=== PATIENT | female | born 1950 | race Caucasian/White ===

== ENCOUNTER 2017-07-09 21:46 | Observation (INO) | payer MEDICARE ==
[~2017-07-09] VITALS: Ht 157.5 cm; Wt 60.0 kg
[2017-07-09 22:42] VITALS: BP 238/108; PULSE 92; RESP 18; TEMP 98.2; O2SAT 97
[2017-07-09 23:00] VITALS: BP 223/107; PULSE 87; RESP 18; O2SAT 96
[2017-07-09] MEDS ORDERED: ZOLP10TA3 PO (23:03)
[2017-07-09] MEDS ORDERED: DICL75TA PO (23:03)
[2017-07-09] MEDS ORDERED: TRIA37.53 (23:03)
[2017-07-09] MEDS ORDERED: ROPI2TAB PO (23:03)
[2017-07-09] MEDS ORDERED: PRAV20TA2 PO (23:03)
[2017-07-09] MEDS ORDERED: ASPI81CH6 CHEW (23:04)
[2017-07-09 23:15] VITALS: BP 212/93; O2SAT 98
[2017-07-09 23:40] VITALS: BP 190/101; PULSE 84; RESP 18; O2SAT 98
[2017-07-09 23:40] LABS: AUTOMATED NEUTROPHIL # 4.6 TH/MM3 (1.8-7.7); BASOPHIL # 0.1 TH/MM3 (0-0.2); BASOPHIL % 1.2 % (0.0-2.0); EOSINOPHIL # 0.7 TH/MM3 (0-0.4); EOSINOPHIL % 8.7 % (0.0-4.0); HEMATOCRIT 42.2 % (35.0-46.0); HEMOGLOBIN 14.9 GM/DL (11.6-15.3); LYMPH % 23.5 % (9.0-44.0); LYMPHOCYTE # 1.9 TH/MM3 (1.0-4.8); MEAN CELL VOLUME 87.8 FL (80.0-100.0); MEAN CORPUSCULAR HEMOGLOBIN 30.9 PG (27.0-34.0); MEAN CORPUSCULAR HGB CONC 35.2 % (32.0-36.0); MEAN PLATELET VOLUME 7.3 FL (7.0-11.0); MONOCYTE # 0.8 TH/MM3 (0-0.9); NEUT % 56.6 % (16.0-70.0); PLATELET COUNT 303 TH/MM3 (150-450); RED BLOOD COUNT 4.81 MIL/MM3 (4.00-5.30); RED CELL DISTRIBUTION WIDTH 13.5 % (11.6-17.2); WHITE BLOOD COUNT 8.2 TH/MM3 (4.0-11.0)
[2017-07-09] MEDS ORDERED: LISINOPRIL 5 MG TAB PO ONE (23:45)
[2017-07-09] MEDS ORDERED: cloNIDine HCL 0.1 MG TAB PO ONE (23:45)
[2017-07-09 23:53] LABS: PROTHROMBIN TIME - PATIENT 10.2 SEC (9.8-11.6)
[2017-07-10] VITALS (7 sets, daily range): BP systolic 111–187; BP diastolic 57–96; PULSE 60–84; RESP 15–20; TEMP 98.2–98.3; O2SAT 96–99
[2017-07-10 00:13] LABS: BICARBONATE 27.3 MEQ/L (21.0-32.0); BLOOD UREA NITROGEN 17 MG/DL (7-18); CALCIUM 9.4 MG/DL (8.5-10.1); CHLORIDE 105 MEQ/L (98-107); CREATININE 0.75 MG/DL (0.50-1.00); GLOMERULAR FILTRATION RATE 78 ML/MIN (>89); GLUCOSE,RANDOM 101 MG/DL (74-106); SODIUM (NA) 138 MEQ/L (136-145)
--- NOTE | 2017-07-10 00:14 | PD ---
HPI Chief Complaint: Hypertension Time Seen by Provider: 22:55 Travel History International Travel<30 days: No Contact w/Intl Traveler<30days: No Traveled to known affect area: No History of Present Illness HPI Patient is a 66-year-old female who for the last few days hasn't been feeling well just kind of a heaviness in her chest. Denies pain or pressure and she is just been feeling run down. She went to see her doctor for regular routine workup and they thought that her EKG looked abnormal and her BP was elevated at 200 systolic over 100 systolic patient is on triamterene and hydrochlorothiazide combination pill that is her only blood pressure med and her pressure still remained high here at triage is 215/93 . EKG here in the ER is 76 bpm minimal depression in V5 and V6 patient denies chest pain. Patient is nontoxic-appearing nondiaphoretic she is not vomiting she has no signs of ischemic event she is reports still feeling slight heaviness in her chest. She took all of her meds and is compliant with her medications [facility] Past Medical History High Cholesterol: Yes Hypertension: Yes Medical other: Yes ("RESTLESS LEGS, INSOMINIA") Past Surgical History Other Surgery: Yes ("RIGHT LEG - TUMOR REMOVAL AND VEIN STRIPPING") Social History Alcohol Use: Yes ("SOCIAL") Tobacco Use: No Substance Use: No Allergies-Medications (Allergen,Severity, Reaction): Coded Allergies: No Known Allergies (Unverified , 07/10/17) Reported Meds & Prescriptions Reported Meds & Active Scripts Active Amlodipine (Amlodipine Besylate) 5 Mg Tab 5 Mg PO DAILY Lisinopril 10 Mg Tab 10 Mg PO DAILY Reported Aspirin Low Dose (Aspirin) 81 Mg Chew 81 Mg CHEW DAILY Zolpidem (Zolpidem Tartrate) 10 Mg Tab 12.5 Mg PO HS PRN Pravastatin 20 Mg Tab 20 Mg PO DAILY Diclofenac Sodium DR (Diclofenac Sodium) 75 Mg Tabdr 75 Mg PO BID Ropinirole 2 Mg Tab 2 Mg PO HS Triamterene-Hydrochlorothiazide 37.5-25 Mg Cap 1 Cap DAILY Review of Systems Except as stated in HPI: all other systems reviewed are Neg General / Constitutional: Positive: Other (patient's feeling rundown for 3 days and some heaviness in her chest denies pain) Physical Exam Narrative GENERAL: Nontoxic-appearing nondiaphoretic awake alert thin body habitus looks very fit for 66 SKIN: Warm and dry. HEAD: Atraumatic. Normocephalic. EYES: Pupils equal and round. No scleral icterus. No injection or drainage. ENT: No nasal bleeding or discharge. Mucous membranes pink and moist. NECK: Trachea midline. No JVD. CARDIOVASCULAR: Regular rate and rhythm. RESPIRATORY: No accessory muscle use. Patient has crackles in the left base possibly atelectasis or possibly edema or possibly an infiltrate GASTROINTESTINAL: Abdomen soft, non-tender, nondistended. Hepatic and splenic margins not palpable. MUSCULOSKELETAL: Extremities without clubbing, cyanosis, or edema. No obvious deformities. NEUROLOGICAL: Awake and alert. No obvious cranial nerve deficits. Motor grossly within normal limits. Five out of 5 muscle strength in the arms and legs. Normal speech. PSYCHIATRIC: Appropriate mood and affect; insight and judgment normal. Data Data Last Documented VS Vital Signs Date Time Temp Pulse Resp B/P (MAP) Pulse Ox O2 Delivery O2 Flow Rate FiO2 07/10/17 01:44 68 18 136/74 (94) 97 Room Air 07/09/17 22:42 98.2 Orders Orders Electrocardiogram (07/09/17 23:04) Complete Blood Count With Diff (07/09/17 23:04) Basic Metabolic Panel (Bmp) (07/09/17 23:04) Ckmb (Isoenzyme) Profile (07/09/17 23:04) Troponin I (07/09/17 23:04) Iv Access Insert/Monitor (07/09/17 23:04) Ecg Monitoring (07/09/17 23:04) Oxygen Administration (07/09/17 23:04) Oximetry (07/09/17 23:04) Coag Profile (07/09/17 23:04) Clonidine (Catapres) (07/09/17 23:45) Lisinopril (Prinivil) (07/09/17 23:45) Chest, Pa & Lat (07/09/17 ) B-Type Natriuretic Peptide (07/09/17 23:50) Ketorolac Inj (Toradol Inj) (07/10/17 01:00) Admit Order (Ed Use Only) (07/10/17 01:47) Labs Laboratory Tests Test 07/09/17 23:10 White Blood Count 8.2 TH/MM3 Red Blood Count 4.81 MIL/MM3 Hemoglobin 14.9 GM/DL Hematocrit 42.2 % Mean Corpuscular Volume 87.8 FL Mean Corpuscular Hemoglobin 30.9 PG Mean Corpuscular Hemoglobin Concent 35.2 % Red Cell Distribution Width 13.5 % Platelet Count 303 TH/MM3 Mean Platelet Volume 7.3 FL Neutrophils (%) (Auto) 56.6 % Lymphocytes (%) (Auto) 23.5 % Monocytes (%) (Auto) 10.0 % Eosinophils (%) (Auto) 8.7 % Basophils (%) (Auto) 1.2 % Neutrophils # (Auto) 4.6 TH/MM3 Lymphocytes # (Auto) 1.9 TH/MM3 Monocytes # (Auto) 0.8 TH/MM3 Eosinophils # (Auto) 0.7 TH/MM3 Basophils # (Auto) 0.1 TH/MM3 CBC Comment DIFF FINAL Differential Comment Prothrombin Time 10.2 SEC Prothromb Time International Ratio 1.0 RATIO Activated Partial Thromboplast Time 28.0 SEC Blood Urea Nitrogen 17 MG/DL Creatinine 0.75 MG/DL Random Glucose 101 MG/DL Calcium Level 9.4 MG/DL Sodium Level 138 MEQ/L Potassium Level 3.6 MEQ/L Chloride Level 105 MEQ/L Carbon Dioxide Level 27.3 MEQ/L Anion Gap 6 MEQ/L Estimat Glomerular Filtration Rate 78 ML/MIN Total Creatine Kinase 72 U/L Troponin I LESS THAN 0.02 NG/ML B-Type Natriuretic Peptide 29 PG/ML MDM Medical Decision Making Medical Screen Exam Complete: Yes Emergency Medical Condition: Yes Differential Diagnosis Patient is possibly having GERD versus gastritis versus costochondritis versus ischemic chest pain versus anxiety related chest pain other Narrative Course Patient has hypertension that did not respond to the medication that I gave her which is the nitroglycerin and aspirin and lisinopril and clonidine. Her BP remain over 200 systolic. Patient agrees to stay for a serial troponin and then a stress test in the a.m. to rule out ischemic causes of her chest heaviness and slight EKG changes. 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 Pt agrees to stay Diagnosis Primary Impression: Atypical chest pain Additional Impression: Hypertension Qualified Codes: I10 - Essential (primary) hypertension Admitting Information Admitting Physician Requests: Observation Scripts Amlodipine (Amlodipine) 5 Mg Tab 5 MG PO DAILY for Blood Pressure Management, #30 TAB 1 Refill Prov: Brenna Horn 07/10/17 Lisinopril (Lisinopril) 10 Mg Tab 10 MG PO DAILY, #30 TAB 1 Refill Prov: Brenna Horn 07/10/17 Dedrick De La Paz MD Jul 10, 2017 00:14
[2017-07-10 00:17] LABS: TROPONIN I LESS THAN 0.02 NG/ML (0.02-0.05)
--- NOTE | 2017-07-10 00:27 | RADRPT ---
EXAM DATE/TIME: 07/10/2017 00:02 [facility] COMPARISON: No previous studies available for comparison. INDICATIONS : Hypertensive episode. MEDICAL HISTORY : Hypertension. SURGICAL HISTORY : None. ENCOUNTER: Initial ACUITY: 1 day PAIN SCORE: 0/10 LOCATION: Bilateral chest FINDINGS: PA and lateral views of the chest demonstrates hyperinflation which can be seen with CO PD. No infiltrates are seen. Heart is normal in size. The mediastinal contours are unremarkable. O sseous structures are intact. CONCLUSION: Hyperinflation which can be seen with COPD. No evidence for an infiltrate. Travis Hatch MD on July 10, 2017 at 0:25 Board Certified Radiologist. This report was verified electronically.
[2017-07-10] MEDS ORDERED: KETOROLAC TROMETHAMINE 30 MG/ML (IVP) VIAL IV PUSH ONE (01:00)
[2017-07-10] MEDS: SODIUM CHLORIDE 0.9% FLUSH 10 ML FLUSH IV FLUSH SCH ×2 (01:52→08:08)
[2017-07-10] MEDS ORDERED: SODIUM CHLORIDE 0.9% FLUSH 10 ML FLUSH IV FLUSH PRN (02:00)
[2017-07-10 03:02] LABS: TROPONIN I LESS THAN 0.02 NG/ML (0.02-0.05)
[2017-07-10 05:50] LABS: TROPONIN I LESS THAN 0.02 NG/ML (0.02-0.05)
[2017-07-10] MEDS ORDERED: NITROGLYCERIN 0.4 MG SL 25 TABS/BTL SL PRN (08:00)
[2017-07-10] MEDS ORDERED: ACETAMINOPHEN 500 MG CPLT PO PRN (08:00)
[2017-07-10] MEDS ORDERED: ONDANSETRON HCL 4 MG/2 ML VIAL IV PUSH PRN (08:00)
[2017-07-10] MEDS ORDERED: ASPIRIN 325 MG TAB PO SCH (09:00)
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
[2017-07-10] MEDS ORDERED: LISINOPRIL 5 MG TAB PO ONE (11:30)
[2017-07-10] MEDS ORDERED: amLODIPine BESYLATE 5 MG TAB PO ONE (11:30)
[2017-07-10] MEDS ORDERED: AMLO5TAB2 PO (12:35)
[2017-07-10] MEDS ORDERED: LISI10TA3 PO (12:35)
--- NOTE | 2017-07-10 12:36 | HHI.DCPOC ---
Discharge Care Plan Diagnosis: (1) Carotid bruit present (2) Atypical chest pain (3) Hypertension Goals to Promote Your Health * To prevent worsening of your condition and complications * To maintain your health at the optimal level Directions to Meet Your Goals Take your medications as prescribed Follow your dietary instruction Follow activity as directed Keep your appointments as scheduled Take your immunizations and boosters as scheduled If your symptoms worsen call your PCP, if no PCP go to Urgent Care Center or Emergency Room Smoking is Dangerous to Your Health. Avoid second hand smoke Call the 24-hour hour crisis hotline for domestic abuse at Brenna Horn Jul 10, 2017 12:36
--- NOTE | 2017-07-10 12:40 | TR ---
Date Performed: 07/10/2017 Time Performed: 12:14:57 DOCTOR: Yogesh Anand DRUG LIST: CLINICAL HISTORY: REASON FOR TEST: REASON FOR ENDING: OBSERVATION: CONCLUSION: Fredo protocol completed. Stopped sec to exceeding target heart rate and leg fatigue . Maximum HA=202 Target HR Achieved=88.0% Maximum FP=289/78 Total Exercise Time=6:01. No reprod chest discomfort. Rare PAC. No st t segment changes to sugg ischemia. Good exercise tolerance. Mildy hyper tensive bp response. Recovery quick and unremarkable COMMENTS: Conclusion: Normal treadmill exercise. No evidence of ischemia.
--- NOTE | 2017-07-10 12:41 | EKG ---
Date Performed: 07/10/2017 Time Performed: 02:28:36 PTAGE: 66 years EKG: Sinus rhythm NORMAL ECG PREVIOUS TRACING : 07/09/2017 23.00 Since previous tracing, no significant change noted DOCTOR: Yogesh Anand Interpretating Date/Time 07/10/2017 12:40:32
--- NOTE | 2017-07-10 12:41 | EKG ---
Date Performed: 07/10/2017 Time Performed: 04:50:01 PTAGE: 66 years EKG: Sinus rhythm WITH FIRST DEGREE AV BLOCK ABNORMAL ECG PREVIOUS TRACING : 07/10/2017 02.28 Since previous tracing, no significant change noted DOCTOR: Yogesh Anand Interpretating Date/Time 07/10/2017 12:39:58
--- NOTE | 2017-07-10 12:42 | EKG ---
Date Performed: 07/09/2017 Time Performed: 23:00:42 PTAGE: 66 years EKG: Sinus rhythm NORMAL ECG PREVIOUS TRACING : 03/30/1993 17.47 Since previous tracing, no significant change noted DOCTOR: Yogesh Anand Interpretating Date/Time 07/10/2017 12:41:03
== END 2017-07-10 13:06 | disposition home or self-care (01) ==
LOC: NEPE 21:46 → NEDA 07-10 01:48 → NEDH 07-10 06:22
PROVIDERS: ADMIT Internal Medicine Cardiovascular Disease; ATTEND Internal Medicine Cardiovascular Disease
DX: I10 Essential (primary) hypertension (principal); R07.89 Other chest pain; R09.89 Other specified symptoms and signs involving the circulatory and respiratory systems; I44.0 Atrioventricular block, first degree; G25.81 Restless legs syndrome; E78.5 Hyperlipidemia, unspecified; G47.00 Insomnia, unspecified
CPT/HCPCS: 71046; 80048; 82550; 83880; 84484; 85025; 85610; 85730; 93005; 93017; 96374; 96376; 99285; G0378; J1885

== ENCOUNTER 2017-07-19 12:07 | Inpatient (IN) | payer MEDICARE ==
[2017-07-19] VITALS (13 sets, daily range): BP systolic 106–146; BP diastolic 55–76; PULSE 58–103; RESP 16–22; TEMP 98.4–99; O2SAT 96–100
[~2017-07-19] VITALS: Ht 157.5 cm; Wt 59.5 kg
[~2017-07-19 12:07] MED LIST: AMLO5TAB2 PO; ASPI81CH6 CHEW; DICL75TA PO; IOHEXOL 350 MG/ML 100 ML BTL (for Cath Lab) OTHER ONE; LISI10TA3 PO; PRAV20TA2 PO; ROPI2TAB PO; TRIA37.53; ZOLP10TA3 PO
[2017-07-19] MEDS ORDERED: ASPIRIN 81 MG CHEW TAB PO STA (12:11)
[2017-07-19] MEDS ORDERED: HEPARIN SODIUM - IV 10,000 UNITS/10 ML VIAL IV PUSH STA (12:11)
[2017-07-19] MEDS ORDERED: NITROGLYCERIN 0.4 MG SL 25 TABS/BTL SL STA (12:11)
[2017-07-19] MEDS ORDERED: SODIUM CHLOR 0.9% 1000 ML INJ 1,000 ML IV ONE (12:11)
[2017-07-19] MEDS ORDERED: NITROGLYCERIN-D5W 50 MG/250 ML 250 ML IV PRN ×2 (12:15→12:30)
[2017-07-19] MEDS ORDERED: SODIUM CHLORIDE 0.9% FLUSH 10 ML FLUSH IVF PRN ×2 (12:15→12:30)
[2017-07-19] MEDS ORDERED: AMIODARONE INJ 150 MG in DEXTROSE 5% IN WATER 100ML INJ 97 ML IV ONE ×2 (12:17)
[2017-07-19 12:26] LABS: AUTOMATED NEUTROPHIL # 7.4 TH/MM3 (1.8-7.7); BASOPHIL # 0.1 TH/MM3 (0-0.2); BASOPHIL % 0.8 % (0.0-2.0); EOSINOPHIL % 0.2 % (0.0-4.0); HEMATOCRIT 38.5 % (35.0-46.0); HEMOGLOBIN 13.1 GM/DL (11.6-15.3); LYMPH % 14.2 % (9.0-44.0); LYMPHOCYTE # 1.4 TH/MM3 (1.0-4.8); MEAN CELL VOLUME 88.5 FL (80.0-100.0); MEAN CORPUSCULAR HEMOGLOBIN 30.2 PG (27.0-34.0); MEAN CORPUSCULAR HGB CONC 34.1 % (32.0-36.0); MEAN PLATELET VOLUME 7.3 FL (7.0-11.0); MONO % 8.8 % (0.0-8.0); MONOCYTE # 0.9 TH/MM3 (0-0.9); PLATELET COUNT 305 TH/MM3 (150-450); RED BLOOD COUNT 4.35 MIL/MM3 (4.00-5.30); RED CELL DISTRIBUTION WIDTH 13.5 % (11.6-17.2); WHITE BLOOD COUNT 9.7 TH/MM3 (4.0-11.0)
--- NOTE | 2017-07-19 12:32 | PD ---
HPI Chief Complaint: STEMI Alert Time Seen by Provider: 12:10 Travel History International Travel<30 days: No Contact w/Intl Traveler<30days: No Traveled to known affect area: No History of Present Illness HPI 66-year-old female patient with history of hypertension, presents to the ER today brought in by EMS as a STEMI alert, started having nausea, vomiting last night, and this morning he started having chest pains which she states was pressure-like and with radiation down the left arm, states it was a 2-3 out of 10 initially, EMS started her on aspirin and nitroglycerin and the chest discomfort went down to a 2 out of 10. She denies other issues. EKG shows inferior ST elevations and depressions in the lateral leads. STEMI alert was called in the ER. Case was discussed with Dr. Bhatt who comes to see the patient in the ER. While we were waiting for Dr. Bhatt to come down, patient had an episode of what appears to be a wide complex tachycardia and there is concern about a V. tach, amiodarone had been ordered for the patient. Otherwise, heparin had been ordered for the patient. However, when Dr. Bhatt saw the patient in the EKG, he suspect that this is reperfusion, and wants to hold off on the amiodarone. He expects to take the patient for catheterization. Modifying Factors: None Associated Signs & Symptoms: STEMI alert Risk Factors: Hypertension PFSH Past Medical History Cardiovascular Problems: Yes High Cholesterol: Yes Hypertension: Yes Past Surgical History Other Surgery: Yes ("RIGHT LEG - TUMOR REMOVAL AND VEIN STRIPPING") Social History Alcohol Use: Yes ("SOCIAL") Tobacco Use: No Substance Use: No Allergies-Medications (Allergen,Severity, Reaction): Coded Allergies: No Known Allergies (Unverified , 07/19/17) Reported Meds & Prescriptions Reported Meds & Active Scripts Active Amlodipine (Amlodipine Besylate) 5 Mg Tab 5 Mg PO DAILY Lisinopril 10 Mg Tab 10 Mg PO DAILY Reported Aspirin Low Dose (Aspirin) 81 Mg Chew 81 Mg CHEW DAILY Zolpidem (Zolpidem Tartrate) 10 Mg Tab 12.5 Mg PO HS PRN Pravastatin 20 Mg Tab 20 Mg PO DAILY Diclofenac Sodium DR (Diclofenac Sodium) 75 Mg Tabdr 75 Mg PO BID Ropinirole 2 Mg Tab 2 Mg PO HS Triamterene-Hydrochlorothiazide 37.5-25 Mg Cap 1 Cap DAILY Review of Systems Except as stated in HPI: all other systems reviewed are Neg Physical Exam Narrative GENERAL: Well-developed elderly female patient currently and moderate distress. Awake and oriented 3. SKIN: Focused skin assessment warm/mildly diaphoretic. HEAD: Atraumatic. Normocephalic. EYES: Pupils equal and round. No scleral icterus. No injection or drainage. ENT: No nasal bleeding or discharge. Mucous membranes pink and moist. NECK: Trachea midline. No JVD. Supple. CARDIOVASCULAR: Regular rate and rhythm. No murmur appreciated. Pulses are present and equal bilaterally. RESPIRATORY: No accessory muscle use. Clear to auscultation. Breath sounds equal bilaterally. GASTROINTESTINAL: Abdomen soft, non-tender, nondistended. Hepatic and splenic margins not palpable. MUSCULOSKELETAL: No obvious deformities. No clubbing. No cyanosis. No edema. NEUROLOGICAL: Awake and alert. No obvious cranial nerve deficits. Motor grossly within normal limits. Normal speech. PSYCHIATRIC: Appropriate mood and affect; insight and judgment normal. Data Data Last Documented VS Vital Signs Date Time Temp Pulse Resp B/P (MAP) Pulse Ox O2 Delivery O2 Flow Rate FiO2 07/19/17 12:18 98 Room Air 07/19/17 12:18 2.00 07/19/17 12:07 98.4 60 19 131/66 (87) Orders Orders Troponin I (07/19/17 12:11) Ckmb (Isoenzyme) Profile (07/19/17 12:11) Complete Blood Count With Diff (07/19/17 12:11) I-Stat Profile (07/19/17 12:11) I-Stat Creatinine (07/19/17 12:11) Calcium (07/19/17 12:11) Magnesium (Mg) (07/19/17 12:11) Prothrombin Time / Inr (Pt) (07/19/17 12:11) Act Partial Throm Time (Ptt) (07/19/17 12:11) B-Type Natriuretic Peptide (07/19/17 12:11) Chest, Single Ap (07/19/17 12:11) Electrocardiogram (07/19/17 12:11) Oxygen Administration (07/19/17 12:11) Iv Access Insert/Monitor (07/19/17 12:11) Oximetry (07/19/17 12:11) Sodium Chlor 0.9% 1000 Ml Inj (Ns 1000 M (07/19/17 12:11) Sodium Chloride 0.9% Flush (Ns Flush) (07/19/17 12:15) Aspirin Chew (Aspirin Chew) (07/19/17 12:11) Nitroglycerin Sl (Nitrostat Sl) (07/19/17 12:11) Nitroglycerin-D5w 50 Mg/250 Ml (Nitrogly (07/19/17 12:15) Heparin Inj (Heparin Inj) (07/19/17 12:11) Dextrose 5% In Wate... W/Amiodarone Inj (07/19/17 12:17) Sodium Chloride 0.9% Flush (Ns Flush) (07/19/17 12:30) Admit Order (Ed Use Only) (07/19/17 12:17) Labs Laboratory Tests Test 07/19/17 12:10 White Blood Count 9.7 TH/MM3 Red Blood Count 4.35 MIL/MM3 Hemoglobin 13.1 GM/DL Bedside Hemoglobin 12.6 G/DL Hematocrit 38.5 % Bedside Hematocrit 37.0 % Mean Corpuscular Volume 88.5 FL Mean Corpuscular Hemoglobin 30.2 PG Mean Corpuscular Hemoglobin Concent 34.1 % Red Cell Distribution Width 13.5 % Platelet Count 305 TH/MM3 Mean Platelet Volume 7.3 FL Neutrophils (%) (Auto) 76.0 % Lymphocytes (%) (Auto) 14.2 % Monocytes (%) (Auto) 8.8 % Eosinophils (%) (Auto) 0.2 % Basophils (%) (Auto) 0.8 % Neutrophils # (Auto) 7.4 TH/MM3 Lymphocytes # (Auto) 1.4 TH/MM3 Monocytes # (Auto) 0.9 TH/MM3 Eosinophils # (Auto) 0.0 TH/MM3 Basophils # (Auto) 0.1 TH/MM3 CBC Comment DIFF FINAL Differential Comment Bedside Sodium 137 MMOL/L Bedside Potassium 4.0 MMOL/L Bedside Chloride 103 MMOL/L Bedside Blood Urea Nitrogen 24 MG/DL Bedside Creatinine 1.5 MG/DL Bedside Glucose 142 MG/DL MDM Medical Decision Making Medical Screen Exam Complete: Yes Emergency Medical Condition: Yes Medical Record Reviewed: Yes Interpretation(s) Initial EKG by EMS shows inferior ST elevations and lateral ST depressions concerning for STEMI. Laboratory Tests Test 07/19/17 12:10 Neutrophils (%) (Auto) 76.0 % (16.0-70.0) Monocytes (%) (Auto) 8.8 % (0.0-8.0) Bedside Blood Urea Nitrogen 24 MG/DL (5-21) Bedside Creatinine 1.5 MG/DL (0.6-1.3) Bedside Glucose 142 MG/DL (68-110) Differential Diagnosis STEMI alert versus hypertensive emergency versus dysrhythmias Narrative Course Patient is admitted to Dr. Bhatt service, planning to go to catheterization. Diagnosis Primary Impression: STEMI (ST elevation myocardial infarction) Admitting Information Admitting Physician Requests: Admit Clayton Benjamin MD Jul 19, 2017 12:32
[2017-07-19 12:37] LABS: PROTHROMBIN TIME - PATIENT 10.5 SEC (9.8-11.6)
[2017-07-19 12:40] LABS: CALCIUM 9.3 MG/DL (8.5-10.1)
[2017-07-19 12:46] LABS: MAGNESIUM 1.8 MG/DL (1.5-2.5)
[2017-07-19] MEDS ORDERED: HEPARIN-NS/PF FLUSH BAG 2,000 ML IV FLUSH ONE (12:47)
--- NOTE | 2017-07-19 12:47 | RADRPT ---
EXAM DATE/TIME: 07/19/2017 12:11 [facility] COMPARISON: No previous studies available for comparison. INDICATIONS : Stemi-alert. MEDICAL HISTORY : Hypertension. SURGICAL HISTORY : None. ENCOUNTER: Initial ACUITY: 1 day PAIN SCORE: 10/10 LOCATION: Bilateral chest FINDINGS: The lungs are clear. Heart size appears normal. Pulmonary vasculature appears normal. Osseous structu res are intact.. CONCLUSION: No acute disease. Vanita Johnson MD on July 19, 2017 at 12:42 Board Certified Radiologist. This report was verified electronically.
[2017-07-19] MEDS ORDERED: VERAPAMIL HCL 5 MG/2 ML VIAL ONE (12:56)
[2017-07-19] MEDS ORDERED: HEPARIN SODIUM - IV 10,000 UNITS/10 ML VIAL ONE (12:56)
[2017-07-19] MEDS ORDERED: MIDAZOLAM HCL 5 MG/5 ML VIAL ONE (13:05)
[2017-07-19] MEDS ORDERED: PHENYLEPHRINE HCL 10 MG/ML VIAL ONE (13:13)
[2017-07-19 13:22] LABS: TROPONIN I 6.33 NG/ML (0.02-0.05)
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
[2017-07-19] MEDS ORDERED: ONDANSETRON HCL 4 MG/2 ML VIAL ONE (13:44)
[2017-07-19] MEDS ORDERED: TIROFIBAN INFUSION INJ 250 ML IV ONE (13:47)
[2017-07-19] MEDS ORDERED: HEPARIN-NS/PF FLUSH BAG 3,000 ML IV FLUSH ONE (13:52)
[2017-07-19] MEDS ORDERED: ADENOSINE IV SOLN 3 MG/ML 2 ML VIAL ONE (14:07)
[2017-07-19] MEDS ORDERED: SODIUM NITROPRUSSIDE 50 MG/2 ML VIAL ONE (14:17)
[2017-07-19] MEDS ORDERED: CLOPIDOGREL 300 MG TAB ONE (14:26)
[2017-07-19] MEDS ORDERED: TIROFIBAN INFUSION INJ 250 ML IV SCH (14:46)
[2017-07-19] MEDS ORDERED: SODIUM CHLOR 0.9% 1000 ML INJ 1,000 ML IV SCH (14:46)
[2017-07-19] MEDS ORDERED: MORPHINE SULFATE 4 MG/ML INJ IV PUSH PRN (15:00)
[2017-07-19] MEDS ORDERED: ATROPINE SULFATE 1 MG/ML VIAL IV PUSH PRN (15:00)
[2017-07-19] MEDS ORDERED: ACETAMINOPHEN 325 MG TAB PO PRN (15:00)
[2017-07-19] MEDS ORDERED: MISC INFORMATION XX ONE (15:00)
[2017-07-19] MEDS ORDERED: SODIUM CHLOR 0.9% 250 ML INJ 250 ML IV PRN (15:00)
[2017-07-19] MEDS ORDERED: oxyCODONE/ACETAMINOPHEN 5 MG/325 MG TAB PO PRN (15:00)
--- NOTE | 2017-07-19 15:00 | CATHPROC ---
[employer] HIS Report Study Information Study Number Admission Scheduled Start Study Start [id number] Jul 19 2017 12:18PM 07/19/2017 Jul 19 2017 12:35PM [place] Service Cardiac Catheterization Admit Source Facility Department Emergency department [facility] - Medical Safety Director Physician and Clinical Staff Initial [facility] Sales Assistant Alvaro George,ZARIA Pharmacy Sales Assistant Renita Chavarria,ZARIA Recorder Keyla Grossman,RT(R) Scrub Jeannette Hollins,CELINA TECH2 Procedures Performed Procedure Location (Site) Vessel Name Coronary Angiograms LCA Left Coronary Coronary Angiograms RCA Right Coronary Drug Eluting Inflatio RCA Dist Right Coronary Drug Eluting Inflatio RCA Prox Right Coronary L Heart Cath Pacemaker Temp Fem Vein (right) Femoral Vein PTCA RCA Dist Right Coronary PTCA RCA Mid Right Coronary PTCA RCA Prox Right Coronary PTCA ADD ON'S Wire insertion Fem Art (right) Femoral Art Wire insertion Fem Vein (right) Femoral Vein Equipment Time Market Director Description Size Mfg Part Number Used/Scraped WIRE, BALANCE MIDDLEWEIGHT [id number] 13:27 [employer] 190CM Used 190CM *[id number] 13:19 MCINTYRE SMITH PACING CATHETER J CURVE FR 5 Used *[id number] TRANSDUCER, TRUWAVE [id number] 13:15 MCINTYRE SMITH * Used W/STOCKCOCK *[id number] 13:49 [employer] BALLOON, 2.0 20MM EMERGE MR 2.0 20MM Used *[id number] INTRODUCER SET, 13:15 [employer] FR 5 [id number] *[id number] Used MICROPUNCTURE STIFF [id number] *[phone] *[id number] [id number] 13:15 [employer] IND[employer]RIES PACK, CCL CUSTOM * Used *[id number] 13:30 MEDTRONIC BALLOON, 2.0 X 12MM EUPHORA 12MM Used *[id number] BALLOON, 2.25 X 15MM NC [id number] 14:20 MEDTRONIC 15MM Used EUPHORA *[id number] BALLOON, 2.75 X 12MM NC [id number] 14:22 MEDTRONIC 12MM Used EUPHORA *[id number] 13:37 [employer] CATHETER, EXPORT ASPIRATON Used *0931275 [id number] 14:03 [employer] STENT, 2.25 30MM MEAGAN 2.25 30MM Used *6262849 [id number] 14:13 [employer] STENT, 2.75 15MM MEAGAN 2.75 15MM Used *1457658 [id number] 13:29 [employer] MEDICAL 30 ERNA INDEFLATOR Used *1108090 [id number] 13:15 [employer] WIRE, 3MMJ .035 180CM 180CM Used *3871703 [id number] 13:15 [employer]AMIC MANIFOLD, 4 PORT * Used *[id number] 13:15 [employer] OMNIPAQUE, 350 MG, 150ML 150ML [id number] Used 13:30 [employer] OMNIPAQUE, 350 MG, 150ML 150ML [id number] Used 13:30 [employer]ED OMNIPAQUE, 350 MG, 50ML 50ML [id number] Used [id number] 13:15 [facility] BLANKET,WARM AIR CCL * Used *4492030 [id number] 13:16 [employer] SHEATH, FR6 TERUMO (10CM) FR 6 Used *6605870 [id number] 13:18 [employer] SHEATH, FR6 TERUMO (10CM) FR 6 Used *[id number] Equipment Model, Serial, Lot Number and Expiration Data Description Model Number Serial Number Lot Number Expiration Date CATHETER, EXPORT ASPIRATON [id number] 02-05-2019 STENT, 2.25 30MM MEAGAN [id number] 02-21-2019 STENT, 2.75 15MM MEAGAN [id number] 03-10-2019 History: Allergies Allergy Reaction No Known Allergies History: Risk Factors Family History of Hypertension Dyslipidemia Previous VT Previous Heart Failure Premature CAD Yes No No No No Prior Valve Prior PCI Prior CABG Surgery No No No Cerebrovascular Peripheral Artery Chronic Lung On Dialysis Diabetes Disease Disease Disease No No No No No History: Symptoms/Diagnosis Selection Items Chest pain History: Stress Tests Stress or Imaging Studies Performed Yes Standard Exercise Stress Stress Test Result Stress Test Ischemia Risk/Extent Test Yes Positive Low Stress Echo No Stress Test SPECT No Stress Test CMR No Cardiac CTA Coronary Calcium Score No No History: Other Current Smoker Method Quit Packs a Day Years Used Pack Years No Cigarettes 8 Years Ago 1 40 40 Labs Hgb (g/dl) Hct (%) RBC (MIL/MM3) WBC (l/cumm) Platelets (thousands) 11.60-17.00 35.00-51.00 4.00-5.90 4.00-11.00 150.00-450.00 12.6 37 4.3 9.7 305 Glucose (mg/dl) BUN (mg/dl) Creatinine (mg/dl) BUN:Creatinine (1:x) 74.00-106.00 7.00-18.00 0.50-1.30 10.00-20.00 142 24 1.5 16 Na (meq/l) K (meq/l) Ca (mg/dl) 136.00-145.00 3.50-5.10 8.50-10.10 137 4 9.3 PT (sec) PTT (sec) INR (PTT:PT) 9.80-11.60 24.30-30.10 0.90-1.10 10.5 25.7 1 Troponin I (ng/ml) CPK-MB (ng/ML) 0.02-0.05 0.50-3.60 6.3 12.7 Medication Medication Total Dose (Bolus/Oral) Medication Total Dosage/Unit 1% XYLOCAINE 20 mL ADENOSINE 24 mcg AGGRASTAT BOLUS 0.5 meq/kg FENTANYL 25 mcg HEPARIN 4000 units PLAVIX 600 mg VERSED 0.5 mg ZOFRAN 4 mg Medications (Bolus/Oral) Medication Time Given Dosage/Unit Administered By Reason 1% XYLOCAINE 07/19/2017 1:11:10 PM 20 mL Brad Bhatt 20 mL 1% XYLOCAINE given in lab by Brad Bhatt in Right Groin via Subcutaneous. VERSED 07/19/2017 1:13:23 PM 0.5 mg Alvaro George 0.5 mg VERSED given in lab by Alvaro George RN via Peripheral IV. FENTANYL 07/19/2017 1:13:53 PM 25 mcg Alvaro George 25 mcg FENTANYL given in lab by Alvaro George RN via Peripheral IV. HEPARIN 07/19/2017 1:34:45 PM 4000 units Alvaro George 4000 units HEPARIN given in lab by Alvaro George RN via Peripheral IV. ZOFRAN 07/19/2017 1:45:03 PM 4 mg Alvaro George 4 mg ZOFRAN given in lab by Alvaro George RN via Central IV. AGGRASTAT BOLUS 07/19/2017 1:52:34 PM 0.5 meq/kg Alvaro George 0.5 meq/kg AGGRASTAT BOLUS given in lab by Alvaro George RN via Peripheral IV. Amount given = 29 meq . ADENOSINE 07/19/2017 2:14:36 PM 24 mcg Brad Bhatt 24 mcg ADENOSINE given in lab by Brad Bhatt via Intra-coronary. 4 ml PLAVIX 07/19/2017 2:35:17 PM 600 mg Alvaro George 600 mg PLAVIX given in lab by Alvaro George RN via Oral. Medication (Drip) Medication Time Given Dosage/Unit Concentration/Unit Diluent (ml) Solution AGGRASTAT DRIP 07/19/2017 1:54:23 PM 0.075 mcg/kg/min 12.5 mg 250 NaCl .9 0.075 mcg/kg/min AGGRASTAT DRIP given in lab by Alvaro George RN via Peripheral IV. Pump/Drip Flow = 5.2 ml/hr using NaCl .9 with a concentration of 12.5 mg in 250 ml. NIPRIDE 07/19/2017 2:25:18 PM 50 mcg 50 mcg NIPRIDE given in lab by Brad Bhatt via Intra-coronary. Final Case Assessment Cardiovascular HR Rhythm NIBP Chest Pain 92 reg 140/71 0 Edema Present Skin color Skin None Normal Warm Circulatory - Right Pulses Dorsalis Pedis Femoral 2 2 Scale (0,1,2,3,4,d) Circulatory - Left Pulses Dorsalis Pedis Femoral 2 2 Scale (0,1,2,3,4,d) Circulatory - Lower Extremities Color Lower Right Color Lower Left Normal Normal Neurological State Oriented to time-place- Alert Moves all extremities person Respiration - General Respiration Rate SpO2 (%) (B/min) 13 100 Chronological Log Time Study Chronological Log 12:45:16 Emergency Room notified that Medical Safety Director is ready. 12:45:50 MD arrived. 12:58:00 Patient arrived via Bed. Vitals capture started with the following parameters, Patient=Adult, Interval=5 min, Initial Pr zbcgtb=444 mmHg, 13:03:37 Deflation Rate=5 mmHg, Cuff placed on Left Arm 13:04:09 HR=82 bpm, AOJV=660/78 mmhg, SpO2=99.0 %, Resp=12 B/min, Pain=0, Red=10, Zamarripa=2 13:04:46 Patient Name, D.O.B, / Armband Verified By R.N. 13:04:46 Consent signed by the physician and the patient and verified by the Medical Safety Director staff. 13:04:47 Pre-op and post- op instructions given; patient acknowledges understanding of instructions. 13:04:49 Verbal Stimulation=2 Physical Stimulation=2 Airway=2 Respiration=2 TOTAL=8. (0=absent, 1=li mited, 2=present) 13:05:44 Skin Breakdown-none 13:08:53 Pressure channel 1 zeroed. 13:09:14 HR=41 bpm, RIGV=520/71 mmhg, RbI2=506.0 %, Resp=18 B/min, Pain=0, Red=10, Zamarripa=2 13:10:54 Case Start 13:11:10 20 mL 1% XYLOCAINE given in lab by Brad Bhatt in Right Groin via Subcutaneous. 13:13:23 0.5 mg VERSED given in lab by Alvaro George RN via Peripheral IV. 13:13:50 Access site was Right Femoral Artery.with micropuncture kit 13:13:52 A wire was inserted via Fem Art (right). 13:13:53 25 mcg FENTANYL given in lab by Alvaro George RN via Peripheral IV. 13:14:54 HR=78 bpm, ZJUR=095/75 mmhg, SpO2=99.0 %, Resp=9 B/min 13:15:26 A SHEATH, FR6 TERUMO (10CM) FR 6 was advanced into the Fem Art (right) using the Percutaneo us technique. 13:15:57 Access site was Right Femoral Vein. mp kit 13:16:06 A wire was inserted via Fem Vein (right). 13:16:19 A SHEATH, FR6 TERUMO (10CM) FR 6 was advanced into the Fem Vein (right) using the Percutane ous technique. 13:17:05 An injection in the Fem Art (right) was made through the SHEATH, FR6 TERUMO (10CM) FR 6. 13:17:57 A PACING CATHETER J CURVE FR 5 was advanced to the right ventricle. Rate = 50, Output = 3, MA = 5. 13:18:49 Reference ECG taken 13:19:12 HR=86 bpm, BRSF=215/78 mmhg, SpO2=99.0 %, Resp=18 B/min, Pain=0, Red=10, Zamarripa=2 13:19:24 Temporary pacing catheter sutured in place 13:19: Lead placement verified under fluoroscopy Recorded Pressure: Ao, HR=51, Condition=Condition 1 13:20:32 (Aorta) Ao 129/57/83 A JL 3.5 INFINITI CATHETER FR 5 was advanced over a wire. OMNIPAQUE, 350 MG, 150ML 150ML was us ed for 13:20:49 injections. 13:21:13 The LCA was injected and visualized at various angles. OMNIPAQUE, 350 MG, 150ML 150ML used . 13:23:26 Catheter was removed A JR 4.0 GUIDE CATHETER FR 6 was advanced over a wire. OMNIPAQUE, 350 MG, 150ML 150ML was used for 13:23:32 injections. 13:24:09 HR=50 bpm, EPPQ=923/64 mmhg, XuW6=978.0 %, Resp=15 B/min, Pain=0, Red=10, Zamarripa=2 Recorded Pressure: LV, HR=51, Condition=Condition 1 13:24:27 (Left Ventricle) LV 130/13/20 Recorded Pressure: LV, Ao, HR=51, Condition=Condition 1 13:24:38 (Left Ventricle) LV 128/12/21, (Aorta) Ao 127/57/82 13:27:58 The RCA was injected and visualized at various angles. OMNIPAQUE, 350 MG, 150ML 150ML used . 13:29:26 OMNIPAQUE, 350 MG, 150ML 150ML and 30 ERNA INDEFLATOR added. 13:29:39 A WIRE, BALANCE MIDDLEWEIGHT 190CM 190CM was inserted via Fem Art (right). 13:29:57 HR=65 bpm, CWOG=329/65 mmhg, PrG9=638.0 %, Resp=13 B/min, Pain=0, Red=10, Zamarripa=2 13:33:06 Interventional wire has crossed the lesion A BALLOON, 2.0 X 12MM EUPHORA 12MM was inserted over WIRE, BALANCE MIDDLEWEIGHT 190CM 190CM via the 13:33:31 RCA Prox. A BALLOON, 2.0 X 12MM EUPHORA 12MM over a WIRE, BALANCE MIDDLEWEIGHT 190CM 190CM in the RCA Pro x was 13:33:44 inflated using a 30 ERNA INDEFLATOR at 8 erna for 16 sec. A BALLOON, 2.0 X 12MM EUPHORA 12MM over a WIRE, BALANCE MIDDLEWEIGHT 190CM 190CM in the RCA Pro x was 13:34:01 inflated using a 30 ERNA INDEFLATOR at 12 erna for 12 sec. 13:34:19 HR=50 bpm, LIZB=771/67 mmhg, SpO2=99.0 %, Resp=16 B/min, Pain=0, Red=10, Zamarripa=2 A BALLOON, 2.0 X 12MM EUPHORA 12MM over a WIRE, BALANCE MIDDLEWEIGHT 190CM 190CM in the RCA Pro x was 13:34:31 inflated using a 30 ERNA INDEFLATOR at 14 erna for 10 sec. 13:34:45 4000 units HEPARIN given in lab by Alvaro George RN via Peripheral IV. 13:34:50 The RCA was injected and visualized at various angles. OMNIPAQUE, 350 MG, 150ML 150ML used . reperfusion 13:35:00 13:36:18 Balloon Removed. 13:36:46 A CATHETER, EXPORT ASPIRATON was advanced over a wire. 13:38:04 Aspiration in progress 13:38:30 export Catheter was removed 13:40:03 HR=57 bpm, ZQCP=923/63 mmhg, SpO2=99.0 %, Resp=18 B/min, Pain=0, Red=10, Zamarripa=2 A BALLOON, 2.0 X 12MM EUPHORA 12MM was inserted over WIRE, BALANCE MIDDLEWEIGHT 190CM 190CM via the 13:41:05 RCA Prox. A BALLOON, 2.0 X 12MM EUPHORA 12MM over a WIRE, BALANCE MIDDLEWEIGHT 190CM 190CM in the RCA Pro x was 13:41:32 inflated using a 30 ERNA INDEFLATOR at 8 erna for 10 sec. A BALLOON, 2.0 X 12MM EUPHORA 12MM over a WIRE, BALANCE MIDDLEWEIGHT 190CM 190CM in the RCA Pro x was 13:42:33 inflated using a 30 ERNA INDEFLATOR at 13 erna for 10 sec. A BALLOON, 2.0 X 12MM EUPHORA 12MM over a WIRE, BALANCE MIDDLEWEIGHT 190CM 190CM in the RCA Mid was 13:42:41 inflated using a 30 ERNA INDEFLATOR at 12 erna for 10 sec. A BALLOON, 2.0 X 12MM EUPHORA 12MM over a WIRE, BALANCE MIDDLEWEIGHT 190CM 190CM in the RCA Mid was 13:43:23 inflated using a 30 ERNA INDEFLATOR at 8 erna for 8 sec. A BALLOON, 2.0 X 12MM EUPHORA 12MM over a WIRE, BALANCE MIDDLEWEIGHT 190CM 190CM in the RCA Mid was 13:43:43 inflated using a 30 ERNA INDEFLATOR at 8 erna for 8 sec. A BALLOON, 2.0 X 12MM EUPHORA 12MM over a WIRE, BALANCE MIDDLEWEIGHT 190CM 190CM in the RCA Mid was 13:44:04 inflated using a 30 ERNA INDEFLATOR at 12 erna for 8 sec. 13:44:17 HR=52 bpm, DHPH=852/58 mmhg, MpY4=828.0 %, Resp=16 B/min, Pain=0, Red=10, Zamarripa=2 13:44:34 The RCA was injected and visualized at various angles. OMNIPAQUE, 350 MG, 150ML 150ML used . 13:44:54 Activated Clotting Time Drawn 13:45:03 4 mg ZOFRAN given in lab by Alvaro George, RN via Central IV. 13:47:10 Balloon Removed. A BALLOON, 2.0 20MM EMERGE MR 2.0 20MM was inserted over WIRE, BALANCE MIDDLEWEIGHT 190CM 190CM via 13:47:31 the RCA Mid. 13:49:01 Activated Clotting Time Drawn 13:49:57 HR=69 bpm, UXAQ=809/53 mmhg, WcN1=091.0 %, Resp=12 B/min, Pain=0, Red=10, Zamarripa=2 13:50:13 Wire placement lost 13:50:53 Balloon Removed. 13:51:15 rewireing rca 13:52:34 0.5 meq/kg AGGRASTAT BOLUS given in lab by Alvaro George, RN via Peripheral IV. Amount give n = 29 meq. 13:52:37 Interventional wire has crossed the lesion A BALLOON, 2.0 20MM EMERGE MR 2.0 20MM was inserted over WIRE, BALANCE MIDDLEWEIGHT 190CM 190CM via 13:52:51 the RCA Dist. A BALLOON, 2.0 20MM EMERGE MR 2.0 20MM over a WIRE, BALANCE MIDDLEWEIGHT 190CM 190CM in the RCA Dist 13:53:26 was inflated using a 30 ERNA INDEFLATOR at 8 erna for 30 sec. 13:53:37 ACT (Normal Range 90-180) = 280 A BALLOON, 2.0 20MM EMERGE MR 2.0 20MM over a WIRE, BALANCE MIDDLEWEIGHT 190CM 190CM in the RCA Dist 13:54:10 was inflated using a 30 ERNA INDEFLATOR at 8 erna for 10 sec. 13:54:15 HR=58 bpm, GHUV=371/64 mmhg, XqJ9=973.0 %, Resp=12 B/min, Pain=0, Red=10, Zamarripa=2 0.075 mcg/kg/min AGGRASTAT DRIP given in lab by Alvaro George RN via Peripheral IV. Pump/Drip Flow = 5.2 ml/hr 13:54:23 using NaCl .9 with a concentration of 12.5 mg in 250 ml. A BALLOON, 2.0 20MM EMERGE MR 2.0 20MM over a WIRE, BALANCE MIDDLEWEIGHT 190CM 190CM in the RCA Dist 13:54:38 was inflated using a 30 ERNA INDEFLATOR at 12 erna for 10 sec. A BALLOON, 2.0 20MM EMERGE MR 2.0 20MM over a WIRE, BALANCE MIDDLEWEIGHT 190CM 190CM in the RCA Mid 13:55:06 was inflated using a 30 ERNA INDEFLATOR at 15 erna for 12 sec. A BALLOON, 2.0 20MM EMERGE MR 2.0 20MM over a WIRE, BALANCE MIDDLEWEIGHT 190CM 190CM in the RCA Prox 13:55:28 was inflated using a 30 ERNA INDEFLATOR at 16 erna for 10 sec. 13:55:49 Balloon Removed. 13:56:11 The RCA was injected and visualized at various angles. OMNIPAQUE, 350 MG, 150ML 150ML used . 13:59:19 HR=75 bpm, KRLM=317/72 mmhg, NyD9=857.0 %, Resp=10 B/min, Pain=0, Red=10, Zamarripa=2 A STENT, 2.25 30MM MEAGAN 2.25 30MM was advanced through a JR 4.0 GUIDE CATHETER FR 6 over a WIRE , BALANCE 14:03:22 MIDDLEWEIGHT 190CM 190CM. 14:04:18 HR=68 bpm, ENGO=707/63 mmhg, QtI0=711.0 %, Resp=12 B/min, Pain=0, Red=10, Zamarripa=2 A STENT, 2.25 30MM MEAGAN 2.25 30MM was deployed using a 30 ERNA INDEFLATOR at 12 atmospheres for 30 seconds 14:04:52 in the RCA Dist. 14:07:14 Delivery device removed 14:08:13 The RCA was injected and visualized at various angles. OMNIPAQUE, 350 MG, 150ML 150ML used . 14:09:15 HR=90 bpm, OHAN=724/72 mmhg, GpS6=148.0 %, Resp=16 B/min, Pain=0, Red=10, Zamarripa=2 A STENT, 2.75 15MM MEAGAN 2.75 15MM was advanced through a JR 4.0 GUIDE CATHETER FR 6 over a WIRE , BALANCE 14:12:19 MIDDLEWEIGHT 190CM 190CM. A STENT, 2.75 15MM MEAGAN 2.75 15MM was deployed using a 30 ERNA INDEFLATOR at 14 atmospheres for 20 seconds 14:12:27 in the RCA Prox. 14:13:14 Re-inflated the stent balloon in the RCA Prox to 14 ERNA for 20 seconds. 14:14:17 Delivery device removed 14:14:18 HR=88 bpm, ENNA=181/78 mmhg, WrN8=190.0 %, Resp=27 B/min, Pain=0, Red=10, Zamarripa=2 14:14:36 24 mcg ADENOSINE given in lab by Brad Bhatt via Intra-coronary. 4 ml A BALLOON, 2.25 X 15MM NC EUPHORA 15MM was inserted over WIRE, BALANCE MIDDLEWEIGHT 190CM 190CM via 14:18:07 the RCA Dist. 14:19:23 HR=77 bpm, TQHA=426/53 mmhg, NcD5=085.0 %, Resp=10 B/min, Pain=0, Red=10, Zamarripa=2 A BALLOON, 2.25 X 15MM NC EUPHORA 15MM over a WIRE, BALANCE MIDDLEWEIGHT 190CM 190CM in the RCA Dist 14:20:11 was inflated using a 30 ERNA INDEFLATOR at 12 erna for 15 sec. A BALLOON, 2.25 X 15MM NC EUPHORA 15MM over a WIRE, BALANCE MIDDLEWEIGHT 190CM 190CM in the RCA Dist 14:20:32 was inflated using a 30 ERNA INDEFLATOR at 14 erna for 12 sec. A BALLOON, 2.25 X 15MM NC EUPHORA 15MM over a WIRE, BALANCE MIDDLEWEIGHT 190CM 190CM in the RCA Dist 14:20:57 was inflated using a 30 ERNA INDEFLATOR at 16 erna for 20 sec. A BALLOON, 2.75 X 12MM NC EUPHORA 12MM was inserted over WIRE, BALANCE MIDDLEWEIGHT 190CM 190CM via 14:22:00 the RCA Prox. A BALLOON, 2.75 X 12MM NC EUPHORA 12MM over a WIRE, BALANCE MIDDLEWEIGHT 190CM 190CM in the RCA Prox 14:22:12 was inflated using a 30 ERNA INDEFLATOR at 12 erna for 15 sec. A BALLOON, 2.75 X 12MM NC EUPHORA 12MM over a WIRE, BALANCE MIDDLEWEIGHT 190CM 190CM in the RCA Prox 14:23:59 was inflated using a 30 ERNA INDEFLATOR at 18 erna for 10 sec. 14:24:22 HR=71 bpm, TXMJ=557/71 mmhg, CxG7=277.0 %, Resp=11 B/min, Pain=0, Red=10, Zamarripa=2 14:24:59 Balloon Removed. 14:25:18 50 mcg NIPRIDE given in lab by Brad Bhatt via Intra-coronary. 14:26:09 The RCA was injected and visualized at various angles. OMNIPAQUE, 350 MG, 150ML 150ML used . 14:27:02 Wire removed 14:27:06 A WIRE, 3MMJ .035 180CM 180CM was inserted via Fem Art (right). 14:27:12 Catheter was removed over j wire Assessment: Final Case, HR=92 BPM, Rhythm=reg, ROIR=634/71 mmhg, Chest Pain=0, Edema=None, [place] r=Normal, Skin = Warm Right Pulses: Rogelio Ped=2, Femoral=2 Left Pulses: Rogelio Ped=2, Femoral=2 14:27:23 Lower Right Extremities: Color=Normal Lower Left Extremities: Color=Normal Neurological: State=Alert, Ox3, TRAMMELL Respiration: Resp=13 B/min, IcP9=309 % 14:28:47 Catheter(s) removed without difficulty 14:28:50 An injection in the Fem Art (right) was made through the SHEATH, FR6 TERUMO (10CM) FR 6. 14:29:21 HR=83 bpm, HBYL=058/79 mmhg, UxR4=602.0 %, Resp=18 B/min, Pain=0, Red=10, Zamarripa=2 14:30:16 pacemaker turned off bifircation no closer device 14:30:43 14:31:33 pacemaker removed 14:34:18 HR=64 bpm, ZWTG=755/79 mmhg, WnW5=175.0 %, Resp=11 B/min, Pain=0, Red=10, Zamarripa=2 14:34:33 Case End 14:35:00 In the Fem Art (right) the SHEATH, FR6 TERUMO (10CM) FR [address] by Sudarshan Hollins, CHARGING MANIPULATOR TECH2. 14:35:17 600 mg PLAVIX given in lab by Alvaro George, RN via Oral. 14:35:28 In the Fem Vein (right) the SHEATH, FR6 TERUMO (10CM) FR [address] by Jeannette Hollins, CHARGING MANIPULATOR TECH2. 14:40:46 Sterile dressing applied to site 14:40:48 No case complications noted. 14:40:48 Cine recording checked. 14:40:49 Bedside Report will be given. 14:40:51 Implantable Device card placed in patient's chart. 14:40:58 Verbal Stimulation=2 Physical Stimulation=2 Airway=2 Respiration=2 TOTAL=8. (0=absent, 1=l imited, 2=present) 14:41:07 A Left Heart Cath was performed. 14:41:11 Clinical correlaton risk stratification. 14:58:21 sheaths will be pulled at a later time when ACT is below 150 End Study - Contrast Media Used In Study Contrast Total Opened (mL) Total Used (mL) Total Wasted (mL) Omnipaque 160 160 0 End Study - Maximum Contrast Load Max Contrast Load (mL) 193.3 End Study - Radiation Exposure Fluoro Time (minutes) 18.9 End Study - Patient Disposition Complications Transferred To Interventional Outcome No Critical Care Bed successful
--- NOTE | 2017-07-19 16:54 | MA ---
cc: Brad Bhatt DO DATE: 07/19/2017 DATE OF PROCEDURE: 07/19/2017 PROCEDURE PERFORMED: Left heart catheterization, coronary angiogram, acute STEMI status post Dario drug-eluting stent x 2 (2.75 x 15 proximal, 2.25 x 30 mid to distal, overlapped), aspiration thrombectomy, moderate sedation 80 minutes, placement of TVP and removal of TVP, complex. PREPROCEDURE DIAGNOSIS: Acute inferior ST-elevation myocardial infarction. POSTPROCEDURE DIAGNOSIS: Acute inferior ST-elevation myocardial infarction. status post Dario drug-eluting stent x 2 (2.75 x 15 proximal, 2.25 x 30 mid to distal ,overlapped) to the right coronary artery, residual left anterior descending disease. MEDICATIONS: Versed 0.5 mg, fentanyl 25 mcg, heparin 4000 units, Zofran 4 mg, Aggrastat 29 mL, Aggrastat drip 5.2 mL per hour, Plavix 600 mg, adenosine 24 mcg intracoronary, Nipride 50 mcg intracoronary. CONTRAST USED: 160 mL FLUOROSCOPY: 18.9 minutes. MODERATE SEDATION: 80 minutes. ESTIMATED BLOOD LOSS: 10 mL. FRAILTY SCORE: 3. PROCEDURAL SUMMARY: Myriam Burrell is a pleasant 66-year-old female who presented to [facility] Emergency Room due to chest pain. She was found to have ST elevations on her EKG and because of this, she was recommended cardiac catheterization. Risks, benefits and alternatives were explained to her and she consented to such. She was brought to the lab and prepped in the usual sterile fashion. The right femoral artery was accessed using a modified Seldinger technique and placement of a 6-Russian sheath. This was easily aspirated and flushed. The patient was noted to be in an accelerated idioventricular rhythm, but when she came out of this, she was significantly bradycardic with heart rates in the upper 20s, low 30s. Because of this, the right femoral vein was accessed using a modified Seldinger technique and placement of a 6-Russian sheath. This was easily aspirated and flushed. A transvenous pacer was advanced to the apex of the RV and set at a backup rate of 50. A JL3.5 catheter was advanced over J-wire to the ascending aorta and used to perform selective angiography of the left coronary artery system. This is exchanged out for a JR4 guide, which was advanced into the left ventricle for measurement of left ventricular pressure. This was pulled back across the aortic valve showing no significant gradient of aortic stenosis. JR4 was used to perform selective angiography of the right coronary artery system. Please see notes below for intervention. FINDINGS: Left main normal size vessel with adequate reflux and 10% disease. It bifurcates into an LAD and circumflex. LAD moderate sized vessel with mild luminal irregularities throughout the proximal portion and 40% disease in the proximal to mid portion. In the midportion of the vessel, there appears to be a 90% stenosis. Before this, it gives off one diagonal which has 20% disease. Left circumflex normal size vessel. It gives off 2 major obtuse marginals with the first one being overall small with mild disease and the second one being somewhat larger with 40-50% disease. RCA 100% occluded. LVEDP 21. INTERVENTION: At this time, Heparin was given as an anticoagulant. A BMW wire was advanced into the distal RCA. A compliant balloon (2 x 12) was used over the lesion. At this time, there was reperfusion, but there was concern that the distal vessel was full of thrombus as well as overall small in nature. At this time, an [place] catheter was used for aspiration thrombectomy. I felt that this needed to be done due to the excessive amount of thrombus throughout the vessel. The compliant balloon (2 x 12) was then placed and tried to dotter the distal part of the vessel and also balloon the mid and distal portions of the vessel distal to the original lesion. A compliant balloon (2 x 20) was attempted to be inserted, but I lost guide support and wire was removed. BMW wire was once again taken into the distal RCA. The compliant balloon (2 x 20) was used at low pressures throughout the entire RCA. Aggrastat bolus,as well as Aggrastat drip were started at that time. An Dario drug-eluting stent (2.25 x 30) was placed over the distal portion of the RCA and inflated. This was then overlapped proximally with an Dario drug-eluting stent (2.75 x 15). Stent balloon was then used to post-dilate the overlap. As there was slow flow distally most likely due to thrombus, adenosine 24 mcg was given intracoronary. A noncompliant balloon (2.25 x 15) was then used to post-dilate the distal portion of the stented area of the coronary. This was exchanged out for a noncompliant balloon (2.75 x 12) which was used to post-dilate the overlap of the stents and the proximal stent. Nipride 50 mcg was given intracoronary. Final angiogram shows a well-opposed stent with no perforations or dissections. The wire and guide were removed. Pacemaker was removed at that time as the patient's heart rate was 60s-70s. Arterial and femoral sheaths were sutured in place with a plan to remove once ACTs were appropriate. The patient left the labor custodian cardiovascularly stable. INTERVENTIONAL DATA: Vessel RCA/PDA. Lesion length 40. Pre-NARENDRA flow 0. Post-NARENDRA flow 3. Post-stenosis 10. IMPRESSIONS: 1. Acute inferior ST elevation myocardial infarction, status post [place] drug-eluting stent x 2 (2.75 x 15 proximal, 2.25 x 30 mid to distal ,overlapped) to the right coronary artery. 2. Residual left anterior descending disease. 3. Hypertension. RECOMMENDATIONS: 1. Ms. Burrell underwent PCI as above and will be placed on aspirin and Plavix therapy. 2. Statin therapy will be added. At this time, due to the acute nature of her inferior ST elevation myocardial infarction as well as significant bradycardia during the case, beta jairo therapy will be held. 3. OLVIN inhibitor therapy will be held due to her acute kidney injury as well as receiving 160 mL of contrast. We will try to gently hydrate her as possible. 4. She will be on Aggrastat 18 hours after the case due to the amount of thrombus during the procedure. 5. We will check an echo to look at her overall left ventricular function, cardiac structure and possible valvulopathies. 6. Depending on how she does over the next 48 hours as well as her kidney function, possible PCI of her LAD on Friday. 7. Further recommendations will be made based on the hospital course. Thank you for allowing me to see Myriam Burrell. If there are any questions, please do not hesitate to call. DO YOVANY Fernandez/ELIUD , 03:31 PM , 04:53 PM ENZO
[2017-07-19] MEDS: oxyCODONE/ACETAMINOPHEN 10 MG/325 MG TAB PO PRN (18:15)
[2017-07-19] MEDS: ATORVASTATIN 80 MG TAB PO SCH (20:58)
[2017-07-20] VITALS (24 sets, daily range): BP systolic 101–139; BP diastolic 55–70; PULSE 61–101; RESP 14–16; TEMP 97.9–98.6; O2SAT 93–96
[2017-07-20] MEDS: ONDANSETRON HCL 4 MG/2 ML VIAL IV PUSH PRN (03:39)
[2017-07-20 04:17] LABS: BASOPHIL % 0.4 % (0.0-2.0); EOSINOPHIL # 0.4 TH/MM3 (0-0.4); EOSINOPHIL % 3.7 % (0.0-4.0); HEMATOCRIT 32.9 % (35.0-46.0); HEMOGLOBIN 11.4 GM/DL (11.6-15.3); LYMPH % 17.6 % (9.0-44.0); LYMPHOCYTE # 1.8 TH/MM3 (1.0-4.8); MEAN CELL VOLUME 88.4 FL (80.0-100.0); MEAN CORPUSCULAR HEMOGLOBIN 30.6 PG (27.0-34.0); MEAN CORPUSCULAR HGB CONC 34.6 % (32.0-36.0); MEAN PLATELET VOLUME 7.1 FL (7.0-11.0); MONO % 10.6 % (0.0-8.0); MONOCYTE # 1.1 TH/MM3 (0-0.9); NEUT % 67.7 % (16.0-70.0); PLATELET COUNT 259 TH/MM3 (150-450); RED BLOOD COUNT 3.73 MIL/MM3 (4.00-5.30); RED CELL DISTRIBUTION WIDTH 13.4 % (11.6-17.2); WHITE BLOOD COUNT 10.3 TH/MM3 (4.0-11.0)
[2017-07-20 04:52] LABS: BICARBONATE 23.4 MEQ/L (21.0-32.0); CALCIUM 8.7 MG/DL (8.5-10.1); CREATININE 0.82 MG/DL (0.50-1.00)
[2017-07-20 04:57] LABS: CHOLESTEROL/ HDL RATIO 2.66 RATIO; HDL CHOLESTEROL 37.9 MG/DL (40.0-60.0)
[2017-07-20] MEDS ORDERED: POTASSIUM CHLORIDE 10 MEQ CONTROLLED RELEASE TAB PO ONE (08:30)
[2017-07-20] MEDS: ASPIRIN 81 MG CHEW TAB PO SCH (08:45)
[2017-07-20] MEDS: CLOPIDOGREL 75 MG TAB PO SCH (08:46)
[2017-07-20] MEDS ORDERED: ATOR80TA45 PO (08:52)
[2017-07-20] MEDS ORDERED: PLAV75TA29 PO (08:52)
--- NOTE | 2017-07-20 12:58 | PD.CARD.PN ---
Subjective Subjective Remarks No complaints overnight, no chest pain/SOB Did have a small hematoma last night, which was pressed out Objective Medications Current Medications Medications (Trade) Dose Ordered Sig/Yaya Route Start Time Stop Time Status Last Admin (NS Flush) 2 ml UNSCH PRN IVF 07/19/17 12:15 (NS Flush) 2 ml UNSCH PRN IVF 07/19/17 12:30 Nitroglycerin/ Dextrose 250 ml @ 3 mls/hr TITRATE PRN IV 07/19/17 12:30 (Tylenol) 325 mg Q4H PRN PO 07/19/17 15:00 (Percocet 5-325 Mg) 1 tab Q4H PRN PO 07/19/17 15:00 07/19/17 23:47 (Percocet 10-325 Mg) 1 tab Q4H PRN PO 07/19/17 15:00 07/19/17 18:15 (Morphine Inj) 2 mg Q30M PRN IV PUSH 07/19/17 15:00 (Aspirin Chew) 81 mg DAILY PO 07/20/17 09:00 07/20/17 08:45 (Plavix) 75 mg DAILY PO 07/20/17 09:00 07/20/17 08:46 (Atropine Inj) 0.5 mg UNSCH PRN IV PUSH 07/19/17 15:00 Sodium Chloride 250 ml @ 500 mls/hr ONCE PRN IV 07/19/17 15:00 07/20/17 14:59 (Zofran Inj) 4 mg Q4H PRN IV PUSH 07/19/17 15:00 07/20/17 03:39 (Lipitor) 80 mg HS PO 07/19/17 21:00 07/19/17 20:58 (Requip) 2 mg HS PO 07/19/17 23:00 07/20/17 00:00 Vital Signs / I&O Vital Signs Date Time Temp Pulse Resp B/P (MAP) Pulse Ox O2 Delivery O2 Flow Rate FiO2 07/20/17 06:00 92 07/20/17 05:00 96 07/20/17 04:00 88 07/20/17 03:00 97.9 90 16 139/70 (93) 95 07/20/17 03:00 90 07/20/17 02:00 84 07/20/17 01:00 98 07/20/17 00:47 16 07/20/17 00:00 94 07/19/17 23:00 93 07/19/17 23:00 98.4 93 16 117/55 (75) 96 07/19/17 22:00 92 07/19/17 21:00 90 07/19/17 20:00 96 07/19/17 19:15 16 07/19/17 19:00 90 07/19/17 19:00 98.5 90 16 127/62 (83) 96 07/19/17 18:00 101 07/19/17 17:00 103 07/19/17 16:00 98 07/19/17 15:27 72 07/19/17 15:27 99.0 81 20 106/56 (73) 96 I/O 07/19/17 07/19/17 07/19/17 07/20/17 07/20/17 07/20/17 07:00 15:00 23:00 07:00 15:00 23:00 Intake Total 480 ml 1939 ml Output Total 500 ml 1200 ml Balance -20 ml 739 ml Intake Oral 480 ml 480 ml IV Total 1459 ml Output Urine Total 500 ml 1200 ml # Voids 1 # Bowel Movements 0 Physical Exam GENERAL: NAD, AAOx3 SKIN: Warm and dry. HEAD: Atraumatic. Normocephalic. EYES: Pupils equal and round. No scleral icterus. No injection or drainage. ENT: No nasal bleeding or discharge. Mucous membranes pink and moist. NECK: Trachea midline. No JVD. CARDIOVASCULAR: Regular rate and rhythm. RESPIRATORY: No accessory muscle use. Clear to auscultation. Breath sounds equal bilaterally. GASTROINTESTINAL: Abdomen soft, non-tender, nondistended. Hepatic and splenic margins not palpable. MUSCULOSKELETAL: Extremities without clubbing, cyanosis, or edema. No obvious deformities. Right femoral no hematoma, minimal ecchymosis NEUROLOGICAL: Awake and alert. No obvious cranial nerve deficits. Motor grossly within normal limits. Five out of 5 muscle strength in the arms and legs. Normal speech. PSYCHIATRIC: Appropriate mood and affect; insight and judgment normal. Laboratory Laboratory Tests Test 07/20/17 04:00 White Blood Count 10.3 TH/MM3 Red Blood Count 3.73 MIL/MM3 Hemoglobin 11.4 GM/DL Hematocrit 32.9 % Mean Corpuscular Volume 88.4 FL Mean Corpuscular Hemoglobin 30.6 PG Mean Corpuscular Hemoglobin Concent 34.6 % Red Cell Distribution Width 13.4 % Platelet Count 259 TH/MM3 Mean Platelet Volume 7.1 FL Neutrophils (%) (Auto) 67.7 % Lymphocytes (%) (Auto) 17.6 % Monocytes (%) (Auto) 10.6 % Eosinophils (%) (Auto) 3.7 % Basophils (%) (Auto) 0.4 % Neutrophils # (Auto) 7.0 TH/MM3 Lymphocytes # (Auto) 1.8 TH/MM3 Monocytes # (Auto) 1.1 TH/MM3 Eosinophils # (Auto) 0.4 TH/MM3 Basophils # (Auto) 0.0 TH/MM3 CBC Comment DIFF FINAL Differential Comment Blood Urea Nitrogen 17 MG/DL Creatinine 0.82 MG/DL Random Glucose 122 MG/DL Calcium Level 8.7 MG/DL Sodium Level 139 MEQ/L Potassium Level 3.2 MEQ/L Chloride Level 107 MEQ/L Carbon Dioxide Level 23.4 MEQ/L Anion Gap 9 MEQ/L Estimat Glomerular Filtration Rate 70 ML/MIN Triglycerides Level 157 MG/DL Cholesterol Level 101 MG/DL LDL Cholesterol 32 MG/DL HDL Cholesterol 37.9 MG/DL Cholesterol/HDL Ratio 2.66 RATIO Assessment and Plan Problem List: (1) CAD (coronary artery disease) ICD Codes: I25.10 - Atherosclerotic heart disease of [place] coronary artery without angina pectoris (2) STEMI (ST elevation myocardial infarction) ICD Codes: I21.3 - ST elevation (STEMI) myocardial infarction of unspecified site Status: Acute (3) Hypertension ICD Codes: I10 - Essential (primary) hypertension Assessment and Plan 1) Acute inferior STEMI s/p DESx2 to RCA ASA/Plavix/Statin Will plan to add BB/OLVIN-I as stable 2) Irregular rhythm yesterday appears to be sinus with PACs, not Afib 3) Plan for PCI of LAD tomorrow NPO after midnight 4) 2D echo pending Brad Bhatt DO Jul 20, 2017 12:58
--- NOTE | 2017-07-20 13:02 | ECHRPT ---
Indication: CONCLUSIONS Normal left ventricular size. Wall thickness is measured at the upper limits of normal. The left ventricular systolic function is normal with an estimated ejection fraction in the range of 55-60%. Mild inferior wall hypokinesis. Mild mitral valve regurgitation. BP: / HR: Rhythm: MEASUREMENTS (Male / Female) Normal Values Technical Quality: 2D ECHO LV Diastolic Diameter PLAX 4.1 cm 4.2 - 5.9 / 3.9 - 5.3 cm LV Systolic Diameter PLAX 3.1 cm IVS Diastolic Thickness 1.1 cm 0.6 - 1.0 / 0.6 - 0.9 cm LVPW Diastolic Thickness 0.6 cm 0.6 - 1.0 / 0.6 - 0.9 cm LV Relative Wall Thickness 0.4 RV Internal Dim ED PLAX 2.1 cm LA Systolic Diameter LX 2.8 cm 3.0 - 4.0 / 2.7 - 3.8 cm DOPPLER Mitral E Point Velocity 79.5 cm/s Mitral A Point Velocity 64.2 cm/s Mitral E to A Ratio 1.2 TR Peak Velocity 221.0 cm/s TR Peak Gradient 19.5 mmHg Right Atrial Pressure 5.0 mmHg Pulmonary Artery Systolic Pressu 24.5 mmHg Right Ventricular Systolic Press 24.5 mmHg FINDINGS LEFT VENTRICLE Normal left ventricular size. Wall thickness is measured at the upper limits of normal. The left ventricular systolic function is normal with an estimated ejection fraction in the range of 55-60%. Mild inferior wall hypokinesis. RIGHT VENTRICLE Normal right ventricular size and systolic function. LEFT ATRIUM The left atrial size is normal. RIGHT ATRIUM The right atrial size is normal. ATRIAL SEPTUM Normal atrial septal thickness without atrial level shunting by limited color doppler interrogation. AORTA The aortic root and proximal ascending aorta are normal in size on limited imaging. MITRAL VALVE Structurally normal mitral valve. Mild mitral valve regurgitation. AORTIC VALVE Trileaflet aortic valve. No aortic valve stenosis or regurgitation. TRICUSPID VALVE Structurally normal tricuspid valve. No tricuspid valve stenosis or regurgitation. PULMONARY VALVE No pulmonary valve regurgitation or stenosis. VESSELS The inferior vena cava is normal in size. PERICARDIUM No pericardial effusion. Pablito Colmenares MD, FACC (Electronically Signed) Final Date:20 July 2017 13:01
[2017-07-20] MEDS ORDERED: PILL SPLITTER OTHER PRN (14:00)
[2017-07-20] MEDS ORDERED: METOPROLOL TARTRATE 25 MG TAB PO ONE (14:00)
--- NOTE | 2017-07-20 14:13 | HHI.PR ---
Subjective Remarks 2 stents placed in RCA yesterday. Patient is feeling well today. Plan for further stenting LAD, tomorrow. No complete chest pain from patient. Objective Vital Signs Date Time Temp Pulse Resp B/P (MAP) Pulse Ox O2 Delivery O2 Flow Rate FiO2 07/20/17 12:00 90 07/20/17 11:00 86 07/20/17 10:00 72 07/20/17 09:00 90 07/20/17 08:00 100 07/20/17 07:00 88 07/20/17 06:00 92 07/20/17 05:00 96 07/20/17 04:00 88 07/20/17 03:00 97.9 90 16 139/70 (93) 95 07/20/17 03:00 90 07/20/17 02:00 84 07/20/17 01:00 98 07/20/17 00:47 16 07/20/17 00:00 94 07/19/17 23:00 93 07/19/17 23:00 98.4 93 16 117/55 (75) 96 07/19/17 22:00 92 07/19/17 21:00 90 07/19/17 20:00 96 07/19/17 19:15 16 07/19/17 19:00 90 07/19/17 19:00 98.5 90 16 127/62 (83) 96 07/19/17 18:00 101 07/19/17 17:00 103 07/19/17 16:00 98 07/19/17 15:27 72 07/19/17 15:27 99.0 81 20 106/56 (73) 96 I/O 07/19/17 07/19/17 07/19/17 07/20/17 07/20/17 07/20/17 07:00 15:00 23:00 07:00 15:00 23:00 Intake Total 480 ml 1939 ml Output Total 500 ml 1200 ml Balance -20 ml 739 ml Intake Oral 480 ml 480 ml IV Total 1459 ml Output Urine Total 500 ml 1200 ml # Voids 1 # Bowel Movements 0 Result Diagram: 07/20/17 0400 07/20/17 0400 Objective Remarks GENERAL: NAD, A&Ox3 HEAD: Normocephalic. NECK: Supple, trachea midline. No lymphadenopathy. EYES: No scleral icterus. No injection or drainage. CARDIOVASCULAR: Regular rate and rhythm without murmurs, gallops, or rubs. RESPIRATORY: Breath sounds equal bilaterally. No accessory muscle use. GASTROINTESTINAL: Abdomen soft, non-tender, nondistended. MUSCULOSKELETAL: No cyanosis, or edema. SKIN: Warm and dry. NEURO: No focal neurological deficitis. A/P Problem List: (1) Atypical chest pain ICD Code: R07.89 - Other chest pain (2) STEMI (ST elevation myocardial infarction) ICD Code: I21.3 - ST elevation (STEMI) myocardial infarction of unspecified site Status: Acute (3) CAD (coronary artery disease) ICD Code: I25.10 - Atherosclerotic heart disease of [place] coronary artery without angina pectoris (4) Hypertension ICD Code: I10 - Essential (primary) hypertension Assessment and Plan 66-year-old female admitted secondary to chest pain with STEMI STEMI Chest pain resolved RCA stented, 2 stents LAD stenting planned for tomorrow Cardiology is following Follow clinically for any signs of chest pain Aspirin, beta jairo, OLVIN inhibitor, nitroglycerin, statin Plavix is in place Hypertension Continue baseline treatment Follow blood pressures Adjust treatments as needed Hyperlipidemia Continue present treatment Follow as an outpatient Restless leg syndrome Insomnia Continue baseline treatments Continue Requip DVT prophylaxis Plavix Nigel Radford MD Jul 20, 2017 14:13
--- NOTE | 2017-07-20 19:56 | EKG ---
Date Performed: 07/19/2017 Time Performed: 12:13:22 PTAGE: 66 years EKG: Sinus rhythm WITH FIRST DEGREE AV BLOCK INTRAVENTRICULAR CONDUCTION DELAY LEFT VENTRICULAR HYPERTROPHY AND ST-T C HANGE INFERIOR MYOCARDIAL INFARCTION ACUTE VA Clinical correlation is strongly recommended, wit h likely diagnosis of acute inferior wall myocardial infarction PREVIOUS TRACING : 07/10/2017 04.50 DOCTOR: Yogesh Anand Interpretating Date/Time 07/20/2017 19:55:31
--- NOTE | 2017-07-20 19:58 | EKG ---
Date Performed: 07/19/2017 Time Performed: 12:25:30 PTAGE: 66 years EKG: SINUS BRADYCARDIA WITH FIRST DEGREE AV BLOCK ACUTE INFERIOR MYOCARDIAL INFARCTION WITH RECI PROCAL CHANGES IN AVL AND LEADS II AND SOME ST DEPRESSION ANTEROLATERALLY ACUTE CT Compared to PREVIOUS TRACING , 12 minutes prior, the intraventricular conduction disturbance and left axis deviation has resolved. Acute inferior wall Myocardial infarction changes persists Clinical cor relation is strongly recommended PREVIOUS TRACIN07/19/2017 12.13 DOCTOR: Yogesh Anand Interpretating Date/Time 07/20/2017 19:57:20
--- NOTE | 2017-07-20 20:00 | EKG ---
Date Performed: 07/19/2017 Time Performed: 15:50:28 PTAGE: 66 years EKG: Sinus rhythm with First degree AV block with a PA interval of .28 PACs present Acute and evolving inferior Myocar dial infarction with reciprocal changes in leads AVL and Lead II Compared to previous tracing, acute inferior wall Myocardial infarction with evolving changes are now present Abnormal ECG PREVIOUS TRACING : 07/19/2017 12.25 DOCTOR: Yogesh Anand Interpretating Date/Time 07/20/2017 19:59:18
--- NOTE | 2017-07-20 20:02 | EKG ---
Date Performed: 07/20/2017 Time Performed: 04:56:08 PTAGE: 66 years EKG: Sinus rhythm with 1st degree A-V block Acute and evolving inferior wall myocardial infarction with reciprocal irma nges in leads AVL and in septal leads Poor R wave progression across the precordium Compared to previ ous tracing, PACs are no longer present. Q waves inferiorly are slightly more prominent and the T wav e inversions inferiorly are slightly more prominent Abnormal ECG PREVIOUS TRACING : 07/19/17 @ 1550 DOCTOR: Yogesh Anand Interpretating Date/Time 07/20/2017 20:01:19
[2017-07-20] MEDS: METOPROLOL TARTRATE 25 MG TAB PO SCH (21:57)
[2017-07-20] MEDS: ATORVASTATIN 80 MG TAB PO SCH (21:57)
[2017-07-21] VITALS (26 sets, daily range): BP systolic 100–136; BP diastolic 56–87; PULSE 45–83; RESP 18–20; TEMP 97.8–98.6; O2SAT 96–99
[2017-07-21 04:02] LABS: AUTOMATED NEUTROPHIL # 5.6 TH/MM3 (1.8-7.7); BASOPHIL % 0.5 % (0.0-2.0); EOSINOPHIL # 0.3 TH/MM3 (0-0.4); EOSINOPHIL % 3.5 % (0.0-4.0); HEMATOCRIT 33.8 % (35.0-46.0); HEMOGLOBIN 11.6 GM/DL (11.6-15.3); LYMPH % 26.7 % (9.0-44.0); LYMPHOCYTE # 2.5 TH/MM3 (1.0-4.8); MEAN CELL VOLUME 89.1 FL (80.0-100.0); MEAN CORPUSCULAR HEMOGLOBIN 30.6 PG (27.0-34.0); MEAN CORPUSCULAR HGB CONC 34.4 % (32.0-36.0); MEAN PLATELET VOLUME 7.6 FL (7.0-11.0); MONO % 9.9 % (0.0-8.0); MONOCYTE # 0.9 TH/MM3 (0-0.9); NEUT % 59.4 % (16.0-70.0); PLATELET COUNT 223 TH/MM3 (150-450); RED CELL DISTRIBUTION WIDTH 13.2 % (11.6-17.2); WHITE BLOOD COUNT 9.5 TH/MM3 (4.0-11.0)
[2017-07-21 04:26] LABS: ALBUMIN 3.2 GM/DL (3.4-5.0); AST (GOT) 229 U/L (15-37); BICARBONATE 25.4 MEQ/L (21.0-32.0); BLOOD UREA NITROGEN 18 MG/DL (7-18); CALCIUM 8.9 MG/DL (8.5-10.1); CHLORIDE 107 MEQ/L (98-107); GLOMERULAR FILTRATION RATE 72 ML/MIN (>89); GLUCOSE,RANDOM 127 MG/DL (74-106); SODIUM (NA) 141 MEQ/L (136-145)
[2017-07-21 04:29] LABS: ALKALINE PHOSPHATASE 61 U/L (45-117); ALT (GPT) 75 U/L (10-53); TOTAL BILIRUBIN ADULT 0.3 MG/DL (0.2-1.0); TOTAL PROTEIN 6.3 GM/DL (6.4-8.2)
[2017-07-21] MEDS ORDERED: NITROGLYCERIN INJ 5 ML ONE (08:02)
[2017-07-21] MEDS ORDERED: VERAPAMIL HCL 5 MG/2 ML VIAL ONE (08:02)
[2017-07-21] MEDS ORDERED: HEPARIN-NS/PF FLUSH BAG 2,000 ML IV FLUSH ONE (08:02)
[2017-07-21] MEDS ORDERED: HEPARIN SODIUM - IV 10,000 UNITS/10 ML VIAL ONE (08:02)
[2017-07-21] MEDS: ASPIRIN 81 MG CHEW TAB PO SCH (08:14)
[2017-07-21] MEDS: CLOPIDOGREL 75 MG TAB PO SCH (08:14)
[2017-07-21] MEDS: METOPROLOL TARTRATE 25 MG TAB PO SCH (08:15)
[2017-07-21] MEDS: LISINOPRIL 5 MG TAB PO SCH (08:15)
[2017-07-21] MEDS ORDERED: MIDAZOLAM HCL 2 MG/2 ML VIAL ONE (08:37)
[2017-07-21] MEDS ORDERED: IOHEXOL 350 MG/ML 100 ML BTL (for Cath Lab) OTHER ONE ×2 (09:48→11:06)
--- NOTE | 2017-07-21 10:10 | CATHPROC ---
[facility] HIS Report Study Information Study Number Admission Scheduled Start Study Start [id number] Jul 19 2017 12:18PM 07/20/2017 Jul 21 2017 8:26AM [facility] Cardiac Catheterization Admit Source Facility Department Emergency department [facility] - [facility] [employer] Physician and Clinical Staff Initial MD Bhatt, Brad Sequins Spoolershara Le RN, Nakita Naarnjo,RT(R) (BS) Scrub Keyla Grossman,RT(R) Procedures Performed Procedure Location (Site) Vessel Name Coronary Angiograms LCA Left Coronary Drug Eluting Inflatio LAD Mid Left Coronary PTCA LAD Mid Left Coronary Wire insertion Fem Art (left) Femoral Art Equipment Time Director Packaging Description Size Mfg Part Number Used/Scraped WIRE, BALANCE MIDDLEWEIGHT [id number] 08:53 [employer] 190CM Used 190CM *[id number] TRANSDUCER, TRUWAVE [id number] 09:18 MCINTYRE SMITH * Used W/ZipongoCOCK *[id number] INTRODUCER SET, 09:18 [employer] FR 5 [id number] *[id number] Used MICROPUNCTURE STIFF [id number] 09:52 DAIG/[employer] ANGIOSEAL, FR6 VIP FR 6 Used *[id number] 09:53 DAIG/[employer] ANGIOSEAL, FR6 VIP FR 6 Used *[id number] 09:18 [employer] INDUSTRIES PACK, CCL CUSTOM * Used *[id number] 09:30 MEDTRONIC BALLOON, 2.0 X 10MM EUPHORA 10MM Used *[id number] BALLOON, 2.25 X 12MM NC [id number] 09:44 MEDTRONIC 12MM Used EUPHORA *[id number] 09:41 MEDTRONIC STENT, 2.25 15MM MEAGAN 2.25 15MM [id number] Used [id number] 08:53 MEDTRONIC/AVE EBU 3.5 Z2 GUIDE CATHETER FR 6 Used *[id number] 09:36 [employer]ar Guarani MEDICAL 30 ERNA INDEFLATOR Used *[id number] 09:18 [employer] WIRE, 3MMJ .035 180CM 180CM Used *[id number] 09:18 NAMIC MANIFOLD, 4 PORT * Used *[id number] 09:18 NYCOMED OMNIPAQUE, 350 MG, 150ML 150ML [id number] Used [id number] 09:18 [employer]OWN [employer] BLANKET,WARM AIR CCL * Used *[id number] 09:18 TERUMO MEDICAL SHEATH, FR5 TERUMO (10CM) FR 5 Used *[id number] 09:11 TERUMO MEDICAL SHEATH, FR6 TERUMO (10CM) FR 6 Used *[id number] Equipment Model, Serial, Lot Number and Expiration Data Description Model Number Serial Number Lot Number Expiration Date ANGIOSEAL, FR6 VIP [id number] 03-13-2018 STENT, 2.25 15MM MEAGAN [id number] 01-03-2019 History: Current Medications Medication Dosage/Unit Route Frequency Last Date/Time Taken Beta Zak Statins (any) ASA PLAVIX History: Allergies Allergy Reaction No Known Allergies History: Risk Factors Family History of Hypertension Dyslipidemia Previous [place] Previous Heart Failure Premature CAD Yes No No Yes No Prior Valve Prior PCI Prior PCIDate Prior CABG Surgery No Yes 07/19/2017 No Cerebrovascular Peripheral Artery Chronic Lung On Dialysis Diabetes Disease Disease Disease No No No No No History: Symptoms/Diagnosis Selection Items Chest pain History: Stress Tests Stress or Imaging Studies Performed No History: Other Current Smoker Method Quit Packs a Day Years Used Pack Years No Cigarettes 8 Years Ago 1 40 40 Labs Hgb (g/dl) Hct (%) WBC (l/cumm) Platelets (thousands) 11.60-17.00 35.00-51.00 4.00-11.00 150.00-450.00 11.6 33.8 9.5 223 Glucose (mg/dl) BUN (mg/dl) Creatinine (mg/dl) BUN:Creatinine (1:x) 74.00-106.00 7.00-18.00 0.50-1.30 10.00-20.00 127 18 0.8 22.5 Na (meq/l) K (meq/l) 136.00-145.00 3.50-5.10 141 3.7 INR (PTT:PT) 0.90-1.10 1 Troponin I (ng/ml) CPK (u/l) CPK-MB (ng/ML) 0.02-0.05 26.00-308.00 0.50-3.60 6.33 724 42.1 Medication Medication Total Dose (Bolus/Oral) Medication Total Dosage/Unit 1% XYLOCAINE 21 mL FENTANYL 150 mcg HEPARIN 5000 units NTG (IC) 400 mcg VERSED 1 mg Medications (Bolus/Oral) Medication Time Given Dosage/Unit Administered By Reason VERSED 07/21/2017 8:58:48 AM 0.5 mg Brad Bhatt 0.5 mg VERSED given in lab by Brad Bhatt in Left Wrist via Peripheral IV. FENTANYL 07/21/2017 8:59:23 AM 25 mcg Rey ENCISO, René 25 mcg FENTANYL given in lab by Rey ENCISO, René in Left Wrist via Peripheral IV. 1% XYLOCAINE 07/21/2017 8:59:53 AM 1 mL Rey ENCISO, René 1 mL 1% XYLOCAINE given in lab by Rey ENCISO, René in Right Radial via Subcutaneous. 1% XYLOCAINE 07/21/2017 9:11:18 AM 20 mL Brad Bhatt 20 mL 1% XYLOCAINE given in lab by Brad Bhatt in Left Groin via Subcutaneous. VERSED 07/21/2017 9:14:15 AM 0.5 mg Brad Bhatt 0.5 mg VERSED given in lab by Brad Bhatt in Left Wrist via Peripheral IV. FENTANYL 07/21/2017 9:15:53 AM 25 mcg Rey ENCISO, René 25 mcg FENTANYL given in lab by Rey ENCISO, René in Left Wrist via Peripheral IV. HEPARIN 07/21/2017 9:20:00 AM 4000 units Rey ENCISO, René 4000 units HEPARIN given in lab by Rey ENCISO, René in Left Wrist via Peripheral IV. FENTANYL 07/21/2017 9:22:40 AM 50 mcg Rey ENCISO, René 50 mcg FENTANYL given in lab by Rey ENCISO, René in Left Wrist via Peripheral IV. HEPARIN 07/21/2017 9:36:59 AM 1000 units Rey ENCISO, René 1000 units HEPARIN given in lab by Rey ENCISO, René in Left Wrist via Peripheral IV. NTG (IC) 07/21/2017 9:38:34 AM 200 mcg Brad Bhatt 200 mcg NTG (IC) given in lab by Brad Bhatt via Intra-coronary. NTG (IC) 07/21/2017 9:47:22 AM 200 mcg Brad Bhatt 200 mcg NTG (IC) given in lab by Brad Bhatt via Intra-coronary. FENTANYL 07/21/2017 9:52:01 AM 50 mcg Rey ENCISO, René 50 mcg FENTANYL given in lab by René Le RN in Left Wrist via Peripheral IV. Medication (Drip) Medication Time Given Dosage/Unit Concentration/Unit Diluent (ml) Solution IV Solutions 07/21/2017 8:26:39 AM 0 mL (IV) 500 NaCl .9 IV Solutions given in lab by René Le RN in Left Wrist via Peripheral IV. Pump/Drip Flow = 30 ml/ hr using NaCl .9. Initial Case Assessment Cardiovascular HR Rhythm NIBP Chest Pain 86 irr 143/73 0 Edema Present Skin color Skin None Normal Warm Dry Circulatory - Right Pulses Dorsalis Pedis Femoral Radial 2 2 2 Scale (0,1,2,3,4,d) Circulatory - Left Pulses Dorsalis Pedis Femoral Radial 2 2 Scale (0,1,2,3,4,d) Circulatory - Lower Extremities Color Lower Right Color Lower Left Normal Normal Neurological State Oriented to time-place- Alert Moves all extremities person Respiration - General Respiration Rate SpO2 (%) (B/min) 11 99 Chronological Log Time Study Chronological Log 8:25:17 Patient arrived via Bed. 8:25:22 Patient Name, D.O.B, / Armband Verified By R.N. 8:26:24 Consent signed by the physician and the patient and verified by the [employer] staff. 8:26:25 Pre-op and post- op instructions given; patient acknowledges understanding of instructions. 8:26:25 Verbal Stimulation=2 Physical Stimulation=2 Airway=2 Respiration=2 TOTAL=8. (0=absent, 1=li mited, 2=present) 8:26:26 Presedation assessment performed by Equipment [employer] RN. 8:26:31 Allens test performed on the right radial and ulnar artery. 8:26:33 Patient has been NPO for More than 6Hrs. 8:26:35 Skin Breakdown none per pt 8:26:36 Patient Warmer Placed on the Table. 8:26:38 Adam Prominences Protected 8:26:39 A # 20 IV was noted in the Wrist (left). Grade = 0 8:26:39 IV Solutions given in lab by René Le RN in Left Wrist via Peripheral IV. Pump/Drip Roosevelt w = 30 ml/hr using NaCl .9. 8:26:40 History and physical on the chart or being dictated. Assessment: Initial Case, HR=86 BPM, Rhythm=irr, XICU=910/73 mmhg, Chest Pain=0, Edema=None, Col or=Normal, Skin = Warm, Dry Right Pulses: Rogelio Ped=2, Femoral=2, Radial=2 Left Pulses: Rogelio Ped=2, Femoral=2 8:26:41 Lower Right Extremities: Color=Normal Lower Left Extremities: Color=Normal Neurological: State=Alert, Ox3, TRAMMELL Respiration: Resp=11 B/min, SpO2=99 % Vitals capture started with the following parameters, Patient=Adult, Interval=5 min, Initial Pre bzzmo=635 mmHg, 8:31:06 Deflation Rate=5 mmHg, Cuff placed on Unknown 8:32:15 HR=86 bpm, RTFE=962/73 mmhg, SpO2=99.0 %, Resp=10 B/min, Pain=0, Red=10, Zamarripa=2 8:36:47 HR=87 bpm, BOQY=717/79 mmhg, SpO2=99.0 %, Resp=15 B/min, Pain=0, Red=10, Zamarripa=2 8:39:41 Reference ECG taken 8:41:37 Right Radial and groin(s) prepped with 2% chlorhexidine, and draped after a 3 min. waiting t jennifer. 8:41:44 HR=82 bpm, RKYW=137/73 mmhg, SpO2=99.0 %, Resp=12 B/min, Pain=0, Red=10, Zamarripa=2 8:46:43 HR=87 bpm, RKYC=146/83 mmhg, SpO2=99.0 %, Resp=20 B/min, Pain=0, Red=10, Zamarripa=2 8:46:51 MD paged 8:47:58 MD arrived 8:48:40 Pressure channel 1 zeroed. 8:51:49 HR=84 bpm, XNMA=308/75 mmhg, SpO2=99.0 %, Resp=13 B/min, Pain=0, Red=10, Zamarripa=2 8:56:46 HR=81 bpm, KLNL=924/74 mmhg, SpO2=99.0 %, Resp=10 B/min, Pain=0, Red=10, Zamarripa=2 Time Out. Correct patient, correct procedure, correct physician, power injector not loaded with contrast with surgical 8:58:00 team present. Time Out Concurred by MD and individual staff in procedure. 8:58:48 0.5 mg VERSED given in lab by Brad Bhatt in Left Wrist via Peripheral IV. 8:58:57 Case Start 8:59:23 25 mcg FENTANYL given in lab by René Le RN in Left Wrist via Peripheral IV. 8:59:53 1 mL 1% XYLOCAINE given in lab by René Le RN in Right Radial via Subcutaneous. 9:01:45 HR=85 bpm, CAQI=423/78 mmhg, SpO2=97.0 %, Resp=27 B/min, Pain=0, Red=10, Zamarripa=2 9:06:48 HR=82 bpm, MALJ=881/71 mmhg, SpO2=97.0 %, Resp=7 B/min, Pain=0, Red=10, Zamarripa=2 9:10:52 Unable to access right radial. 9:11:18 20 mL 1% XYLOCAINE given in lab by Brad Bhatt in Left Groin via Subcutaneous. 9:11:49 HR=80 bpm, OMLI=029/81 mmhg, ZmO1=500.0 %, Resp=10 B/min, Pain=0, Red=10, Zamarripa=2 9:14:15 0.5 mg VERSED given in lab by Brad Bhatt in Left Wrist via Peripheral IV. 9:15:53 25 mcg FENTANYL given in lab by René Le RN in Left Wrist via Peripheral IV. 9:16:52 HR=79 bpm, RLYG=867/75 mmhg, SpO2=97.0 %, Resp=30 B/min, Pain=0, Red=10, Zamarripa=2 9:17:30 Access site was Left Femoral Artery. A INTRODUCER SET, MICROPUNCTURE STIFF FR 5 was advanced into the Fem Art (left) using the Percut aneous 9:17:38 technique. A SHEATH, FR6 TERUMO (10CM) FR 6 was exchanged in the Fem Art (left). This was necessary in orde r to 9:17:48 accomodate a larger catheter. 9:18:59 An injection in the Fem Art (left) was made through the SHEATH, FR6 TERUMO (10CM) FR 6. 9:20:00 4000 units HEPARIN given in lab by René Le RN in Left Wrist via Peripheral IV. A EBU 3.5 Z2 GUIDE CATHETER FR 6 was advanced over a wire. OMNIPAQUE, 350 MG, 150ML 150ML was us ed for 9:20:04 injections. 9:21:51 HR=79 bpm, EWNO=013/73 mmhg, SpO2=99.0 %, Resp=10 B/min, Pain=0, Red=10, Zamarripa=2 Recorded Pressure: Ao, HR=82, Condition=Condition 1 9:22:10 (Aorta) Ao 111/60/82 9:22:40 50 mcg FENTANYL given in lab by René Le RN in Left Wrist via Peripheral IV. 9:23:16 The LCA was injected and visualized at various angles. OMNIPAQUE, 350 MG, 150ML 150ML used. 9:25:56 A WIRE, BALANCE MIDDLEWEIGHT 190CM 190CM was inserted via Fem Art (left). 9:26:52 HR=78 bpm, FKPV=266/67 mmhg, SpO2=93.0 %, Resp=18 B/min, Pain=0, Red=10, Zamarripa=2 9:31:26 Activated Clotting Time Drawn A BALLOON, 2.0 X 10MM EUPHORA 10MM was inserted over WIRE, BALANCE MIDDLEWEIGHT 190CM 190CM via the 9:31:30 Fem Art (left). 9:31:51 HR=78 bpm, PNYO=965/73 mmhg, SpO2=95.0 %, Resp=11 B/min, Pain=0, Red=10, Zamarripa=2 A BALLOON, 2.0 X 10MM EUPHORA 10MM over a WIRE, BALANCE MIDDLEWEIGHT 190CM 190CM in the LAD Mid was 9:35:43 inflated using a 30 ERNA INDEFLATOR at 8 erna for 20 sec. 9:36:18 ACT (Normal Range 90-180) = 266 9:36:52 HR=77 bpm, LKVX=872/78 mmhg, SpO2=97.0 %, Resp=14 B/min, Pain=0, Red=10, Zamarripa=2 9:36:59 1000 units HEPARIN given in lab by René Le RN in Left Wrist via Peripheral IV. 9:37:10 Balloon Removed 9:38:34 200 mcg NTG (IC) given in lab by Brad Bhatt via Intra-coronary. A STENT, 2.25 15MM MEAGAN 2.25 15MM was advanced through a EBU 3.5 Z2 GUIDE CATHETER FR 6 over a W ABHISHEK, 9:42:15 BALANCE MIDDLEWEIGHT 190CM 190CM. 9:42:22 HR=87 bpm, EMQB=558/98 mmhg, SpO2=96.0 %, Resp=6 B/min, Pain=0, Red=10, Zamarripa=2 A STENT, 2.25 15MM MEAGAN 2.25 15MM was deployed using a 30 ERNA INDEFLATOR at 12 atmospheres for 3 0 seconds 9:42:23 in the LAD Mid. 9:43:43 Delivery device removed A BALLOON, 2.25 X 12MM NC EUPHORA 12MM was inserted over WIRE, BALANCE MIDDLEWEIGHT 190CM 190CM via 9:44:01 the Fem Art (left). A BALLOON, 2.25 X 12MM NC EUPHORA 12MM over a WIRE, BALANCE MIDDLEWEIGHT 190CM 190CM in the LAD Mid 9:45:28 was inflated using a 30 ERNA INDEFLATOR at 12 erna for 12 sec. A BALLOON, 2.25 X 12MM NC EUPHORA 12MM over a WIRE, BALANCE MIDDLEWEIGHT 190CM 190CM in the LAD Mid 9:46:02 was inflated using a 30 ERNA INDEFLATOR at 14 erna for 10 sec. 9:46:33 Balloon Removed 9:46:54 HR=84 bpm, WCGW=172/100 mmhg, SpO2=97.0 %, Resp=14 B/min, Pain=0, Red=10, Zamarripa=2 9:47:22 200 mcg NTG (IC) given in lab by Brad Bhatt via Intra-coronary. 9:50:01 Wire removed 9:50:11 A WIRE, 3MMJ .035 180CM 180CM was inserted via Fem Art (left). 9:50:23 Catheter was removed 9:50:26 Wire removed 9:51:57 HR=82 bpm, WDKE=361/83 mmhg, SpO2=97.0 %, Resp=11 B/min, Pain=0, Red=10, Zamarripa=2 9:52:01 50 mcg FENTANYL given in lab by René Le RN in Left Wrist via Peripheral IV. 9:53:17 ANGIOSEAL, FR6 VIP FR 6 placement in the Fem Art (left) 9:56:05 Case End 9:56:42 Catheter(s) removed without difficulty 9:56:45 No case complications noted. 9:56:48 Bedside Report will be given. 9:56:49 Implantable Device card placed in patient's chart. 9:56:54 HR=75 bpm, QFCY=538/82 mmhg, SpO2=97.0 %, Resp=9 B/min, Pain=0, Red=10, Zamarripa=2 9:57:24 [facility] called. Spoke to Deborah. 10:01:08 Vitals capture stopped. 10:02:57 Patient moved to [facility] End Study - Contrast Media Used In Study Contrast Total Opened (mL) Total Used (mL) Total Wasted (mL) Omnipaque 80 80 0 End Study - Maximum Contrast Load Max Contrast Load (mL) 368.8 End Study - Radiation Exposure Fluoro Time (minutes) 8.6 End Study - Sheaths Sheaths Pulled By Sheath Hold Time (min) Brad Bhatt End Study - Patient Disposition Complications Transferred To Interventional Outcome No Telemetry Bed successful
[2017-07-21] MEDS ORDERED: MISC INFORMATION XX ONE (10:15)
[2017-07-21] MEDS ORDERED: ATROPINE SULFATE 1 MG/ML VIAL IV PUSH PRN (10:15)
--- NOTE | 2017-07-21 13:41 | HHI.PR ---
Subjective Remarks 2 stents placed in RCA 2 days ago. One stent placed in LAD today. Patient is feeling well today. No complete chest pain from patient. Objective Vital Signs Date Time Temp Pulse Resp B/P (MAP) Pulse Ox O2 Delivery O2 Flow Rate FiO2 07/21/17 12:00 81 07/21/17 11:00 72 07/21/17 11:00 97.8 72 20 136/87 (103) 96 07/21/17 10:22 75 07/21/17 08:00 79 07/21/17 07:15 78 07/21/17 07:00 98.2 73 19 115/59 (77) 98 07/21/17 06:04 55 07/21/17 05:13 45 07/21/17 04:31 98.1 52 119/57 (77) 99 07/21/17 04:00 46 07/21/17 03:00 48 07/21/17 02:00 48 07/21/17 01:00 56 07/21/17 00:26 98.6 48 100/56 (71) 96 07/21/17 00:00 50 07/20/17 23:00 70 07/20/17 22:00 66 07/20/17 21:00 72 07/20/17 20:00 74 07/20/17 19:00 74 07/20/17 19:00 98.3 61 112/55 (74) 93 07/20/17 18:00 82 07/20/17 17:00 64 07/20/17 16:00 65 07/20/17 15:00 98.6 92 16 120/66 (84) 94 07/20/17 15:00 92 07/20/17 14:00 101 I/O 07/20/17 07/20/17 07/20/17 07/21/17 07/21/17 07/21/17 07:00 15:00 23:00 07:00 15:00 23:00 Intake Total 1939 ml 720 ml 480 ml Output Total 1200 ml 900 ml 550 ml Balance 739 ml -180 ml -70 ml Intake Oral 480 ml 720 ml 480 ml IV Total 1459 ml Output Urine Total 1200 ml 900 ml 550 ml Result Diagram: 07/21/1733807/21/17338 Objective Remarks GENERAL: NAD, A&Ox3 HEAD: Normocephalic. NECK: Supple, trachea midline. No lymphadenopathy. EYES: No scleral icterus. No injection or drainage. CARDIOVASCULAR: Regular rate and rhythm without murmurs, gallops, or rubs. RESPIRATORY: Breath sounds equal bilaterally. No accessory muscle use. GASTROINTESTINAL: Abdomen soft, non-tender, nondistended. MUSCULOSKELETAL: No cyanosis, or edema. SKIN: Warm and dry. NEURO: No focal neurological deficitis. A/P Problem List: (1) Atypical chest pain ICD Code: R07.89 - Other chest pain (2) STEMI (ST elevation myocardial infarction) ICD Code: I21.3 - ST elevation (STEMI) myocardial infarction of unspecified site Status: Acute (3) CAD (coronary artery disease) ICD Code: I25.10 - Atherosclerotic heart disease of [place] coronary artery without angina pectoris (4) Hypertension ICD Code: I10 - Essential (primary) hypertension Assessment and Plan 66-year-old female admitted secondary to chest pain with STEMI Stenting of RCA and LAD. Patient is doing well post LAD procedure today. Cardiology following. Continue bed rest. Possible discharge tomorrow. STEMI Chest pain resolved RCA stented, 2 stents LAD stenting planned for tomorrow Cardiology is following Follow clinically for any signs of chest pain Aspirin, beta jairo, OLVIN inhibitor, nitroglycerin, statin Plavix is in place Hypertension Continue baseline treatment Follow blood pressures Adjust treatments as needed Hyperlipidemia Continue present treatment Follow as an outpatient Restless leg syndrome Insomnia Continue baseline treatments Continue Requip DVT prophylaxis Plavix Nigel Radford MD Jul 21, 2017 13:41
--- NOTE | 2017-07-21 14:52 | PD.CARD.PN ---
Subjective Subjective Remarks No complaints overnight, no chest pain/SOB Post PCI LAD Right femoral with some ecchymosis, left femoral with track ooze Objective Medications Current Medications Medications (Trade) Dose Ordered Sig/Yaya Route Start Time Stop Time Status Last Admin (NS Flush) 2 ml UNSCH PRN IVF 07/19/17 12:15 (NS Flush) 2 ml UNSCH PRN IVF 07/19/17 12:30 Nitroglycerin/ Dextrose 250 ml @ 3 mls/hr TITRATE PRN IV 07/19/17 12:30 (Tylenol) 325 mg Q4H PRN PO 07/19/17 15:00 (Percocet 5-325 Mg) 1 tab Q4H PRN PO 07/19/17 15:00 07/19/17 23:47 (Percocet 10-325 Mg) 1 tab Q4H PRN PO 07/19/17 15:00 07/19/17 18:15 (Morphine Inj) 2 mg Q30M PRN IV PUSH 07/19/17 15:00 (Aspirin Chew) 81 mg DAILY PO 07/20/17 09:00 07/21/17 08:14 (Plavix) 75 mg DAILY PO 07/20/17 09:00 07/21/17 08:14 (Zofran Inj) 4 mg Q4H PRN IV PUSH 07/19/17 15:00 07/20/17 03:39 (Lipitor) 80 mg HS PO 07/19/17 21:00 07/20/17 21:57 (Requip) 2 mg HS PO 07/19/17 23:00 07/20/17 21:57 (Prinivil) 5 mg DAILY PO 07/21/17 09:00 07/21/17 08:15 (Pill Splitter) 1 ea UNSCH PRN OTHER 07/20/17 14:00 (Atropine Inj) 0.5 mg UNSCH PRN IV PUSH 07/21/17 10:15 Vital Signs / I&O Vital Signs Date Time Temp Pulse Resp B/P (MAP) Pulse Ox O2 Delivery O2 Flow Rate FiO2 07/21/17 14:00 80 07/21/17 13:00 83 07/21/17 12:00 81 07/21/17 11:00 72 07/21/17 11:00 97.8 72 20 136/87 (103) 96 07/21/17 10:22 75 07/21/17 08:00 79 07/21/17 07:15 78 07/21/17 07:00 98.2 73 19 115/59 (77) 98 07/21/17 06:04 55 07/21/17 05:13 45 07/21/17 04:31 98.1 52 119/57 (77) 99 07/21/17 04:00 46 07/21/17 03:00 48 07/21/17 02:00 48 07/21/17 01:00 56 07/21/17 00:26 98.6 48 100/56 (71) 96 07/21/17 00:00 50 07/20/17 23:00 70 07/20/17 22:00 66 07/20/17 21:00 72 07/20/17 20:00 74 07/20/17 19:00 74 07/20/17 19:00 98.3 61 112/55 (74) 93 07/20/17 18:00 82 07/20/17 17:00 64 07/20/17 16:00 65 07/20/17 15:00 98.6 92 16 120/66 (84) 94 07/20/17 15:00 92 I/O 07/20/17 07/20/17 07/20/17 07/21/17 07/21/17 07/21/17 07:00 15:00 23:00 07:00 15:00 23:00 Intake Total 1939 ml 720 ml 480 ml Output Total 1200 ml 900 ml 550 ml Balance 739 ml -180 ml -70 ml Intake Oral 480 ml 720 ml 480 ml IV Total 1459 ml Output Urine Total 1200 ml 900 ml 550 ml Physical Exam GENERAL: NAD, AAOx3 SKIN: Warm and dry. HEAD: Atraumatic. Normocephalic. EYES: Pupils equal and round. No scleral icterus. No injection or drainage. ENT: No nasal bleeding or discharge. Mucous membranes pink and moist. NECK: Trachea midline. No JVD. CARDIOVASCULAR: Regular rate and rhythm. RESPIRATORY: No accessory muscle use. Clear to auscultation. Breath sounds equal bilaterally. GASTROINTESTINAL: Abdomen soft, non-tender, nondistended. Hepatic and splenic margins not palpable. MUSCULOSKELETAL: Extremities without clubbing, cyanosis, or edema. No obvious deformities. Right femoral mild ecchymosis NEUROLOGICAL: Awake and alert. No obvious cranial nerve deficits. Motor grossly within normal limits. Five out of 5 muscle strength in the arms and legs. Normal speech. PSYCHIATRIC: Appropriate mood and affect; insight and judgment normal. Laboratory Laboratory Tests Test 07/21/17 03:39 White Blood Count 9.5 TH/MM3 Red Blood Count 3.80 MIL/MM3 Hemoglobin 11.6 GM/DL Hematocrit 33.8 % Mean Corpuscular Volume 89.1 FL Mean Corpuscular Hemoglobin 30.6 PG Mean Corpuscular Hemoglobin Concent 34.4 % Red Cell Distribution Width 13.2 % Platelet Count 223 TH/MM3 Mean Platelet Volume 7.6 FL Neutrophils (%) (Auto) 59.4 % Lymphocytes (%) (Auto) 26.7 % Monocytes (%) (Auto) 9.9 % Eosinophils (%) (Auto) 3.5 % Basophils (%) (Auto) 0.5 % Neutrophils # (Auto) 5.6 TH/MM3 Lymphocytes # (Auto) 2.5 TH/MM3 Monocytes # (Auto) 0.9 TH/MM3 Eosinophils # (Auto) 0.3 TH/MM3 Basophils # (Auto) 0.0 TH/MM3 CBC Comment DIFF FINAL Differential Comment Blood Urea Nitrogen 18 MG/DL Creatinine 0.80 MG/DL Random Glucose 127 MG/DL Total Protein 6.3 GM/DL Albumin 3.2 GM/DL Calcium Level 8.9 MG/DL Alkaline Phosphatase 61 U/L Aspartate Amino Transf (AST/SGOT) 229 U/L Alanine Aminotransferase (ALT/SGPT) 75 U/L Total Bilirubin 0.3 MG/DL Sodium Level 141 MEQ/L Potassium Level 3.7 MEQ/L Chloride Level 107 MEQ/L Carbon Dioxide Level 25.4 MEQ/L Anion Gap 9 MEQ/L Estimat Glomerular Filtration Rate 72 ML/MIN Assessment and Plan Problem List: (1) CAD (coronary artery disease) ICD Codes: I25.10 - Atherosclerotic heart disease of [place] coronary artery without angina pectoris (2) STEMI (ST elevation myocardial infarction) ICD Codes: I21.3 - ST elevation (STEMI) myocardial infarction of unspecified site Status: Acute (3) Hypertension ICD Codes: I10 - Essential (primary) hypertension Assessment and Plan 1) Acute inferior STEMI s/p DESx2 to RCA PCI of LAD with LOUANN ASA/Plavix/Statin/OLVIN-I No Beta Zak due to heart rates in the 40s overnight 2) EF 55-60% 3) Depending on how she does overnight, possible discharge tomorrow Brad Bhatt DO Jul 21, 2017 14:52
[2017-07-21] MEDS: oxyCODONE/ACETAMINOPHEN 10 MG/325 MG TAB PO PRN (16:08)
[2017-07-21] MEDS: ONDANSETRON HCL 4 MG/2 ML VIAL IV PUSH PRN (18:28)
[2017-07-21] MEDS: ATORVASTATIN 80 MG TAB PO SCH (21:29)
[2017-07-22] VITALS (16 sets, daily range): BP systolic 124–125; BP diastolic 61–67; PULSE 77–97; RESP 16; TEMP 97.5–98.5; O2SAT 95–97
[2017-07-22 04:51] LABS: AUTOMATED NEUTROPHIL # 3.7 TH/MM3 (1.8-7.7); BASOPHIL # 0.1 TH/MM3 (0-0.2); BASOPHIL % 0.8 % (0.0-2.0); EOSINOPHIL # 0.6 TH/MM3 (0-0.4); EOSINOPHIL % 8.4 % (0.0-4.0); HEMATOCRIT 29.1 % (35.0-46.0); HEMOGLOBIN 9.8 GM/DL (11.6-15.3); LYMPH % 28.8 % (9.0-44.0); MEAN CELL VOLUME 88.5 FL (80.0-100.0); MEAN CORPUSCULAR HEMOGLOBIN 29.8 PG (27.0-34.0); MEAN CORPUSCULAR HGB CONC 33.7 % (32.0-36.0); MEAN PLATELET VOLUME 7.6 FL (7.0-11.0); MONO % 9.3 % (0.0-8.0); MONOCYTE # 0.7 TH/MM3 (0-0.9); NEUT % 52.7 % (16.0-70.0); PLATELET COUNT 228 TH/MM3 (150-450); RED CELL DISTRIBUTION WIDTH 13.2 % (11.6-17.2)
[2017-07-22 05:18] LABS: ALBUMIN 3.2 GM/DL (3.4-5.0); AST (GOT) 126 U/L (15-37); BICARBONATE 25.4 MEQ/L (21.0-32.0); BLOOD UREA NITROGEN 14 MG/DL (7-18); CALCIUM 8.3 MG/DL (8.5-10.1); CHLORIDE 108 MEQ/L (98-107); CREATININE 0.56 MG/DL (0.50-1.00); GLOMERULAR FILTRATION RATE 109 ML/MIN (>89); GLUCOSE,RANDOM 86 MG/DL (74-106); SODIUM (NA) 141 MEQ/L (136-145)
[2017-07-22 05:21] LABS: ALKALINE PHOSPHATASE 51 U/L (45-117); ALT (GPT) 62 U/L (10-53); TOTAL BILIRUBIN ADULT 0.5 MG/DL (0.2-1.0); TOTAL PROTEIN 6.2 GM/DL (6.4-8.2)
[2017-07-22] MEDS: ASPIRIN 81 MG CHEW TAB PO SCH (08:45)
[2017-07-22] MEDS: CLOPIDOGREL 75 MG TAB PO SCH (08:46)
[2017-07-22] MEDS: LISINOPRIL 5 MG TAB PO SCH (08:46)
--- NOTE | 2017-07-22 09:28 | MA ---
cc: Brad Bhatt DO DATE: 07/21/2017 PROCEDURES PERFORMED: Coronary angiogram, Dos Rios drug-eluting stent (2.25 x 15) to LAD, Angio-Seal femoral closure, moderate sedation, 60 minutes. PREPROCEDURE DIAGNOSIS: Acute inferior ST elevation myocardial infarction, with residual left anterior descending disease. POSTPROCEDURE DIAGNOSIS: Coronary artery disease, status post Dos Rios drug-eluting stent (2.25 x 15) to the mid left anterior descending artery. MEDICATIONS: Versed 1 mg, fentanyl 150 mg, nitroglycerin 200 mcg, verapamil 2.5 mg. CONTRAST USED: 80 mL. FLUOROSCOPY: 8.6 minutes. SEDATION: Moderate sedation, 60 minutes. ESTIMATED BLOOD LOSS: 10 mL. FRAILTY SCORE: Three. PROCEDURAL SUMMARY: Myriam Burrell is a pleasant 66-year-old female who originally presented as an acute inferior STEMI on 07/19/2017. She underwent PCI of her RCA, which was noted to have significant residual LAD disease and so she was brought back for a staged PCI of her LAD. Risks, benefits and alternatives were explained to her and she consented to such. She was brought to the lab and prepped in the usual sterile fashion. I attempted to gain access in the right radial artery with ultrasound guidance, but was unable to thread the wire and so left femoral artery was accessed using a modified Seldinger technique and placement of a 6-[place] sheath. This was easily aspirated and flushed. An EBU 3.5 guide was engaged in the left main. Heparin was given as an anticoagulant. A BMW wire was advanced down to the distal portion of the LAD. A compliant balloon (2 x 10) was inflated over the lesion. An Dario drug-eluting stent (2.25 x 15) was placed over the lesion and inflated. This was then postdilated with a noncompliant balloon (2.25 x 12). The wire was removed. Final angiogram shows a well opposed stent, with no perforations or dissections. The wire and guide were removed. Because of the patient's significant pain with the femoral sheath and significant vasovagal anytime any pressure was placed, I felt that the arteriotomy should be closed with an Angio-Seal. 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 FINDINGS: Left main 10%. LAD proximal portion 40%, with a mid 90% lesion. Diagonal 10%. Left circumflex 20%. Obtuse marginal 50%. IMPRESSION: 1. Acute inferior ST elevation myocardial infarction, status post drug-eluting stent x 2. 2. Residual coronary artery disease, status post Dario drug-eluting stent (2.25 x 15) to the mid left anterior descending artery. RECOMMENDATIONS: 1. Ms. Burrell underwent PCI of her LAD and has been placed on aspirin and Plavix therapy. 2. We will continue her on statin and OLVIN inhibitor therapy. 3. I stopped her beta jairo therapy as she had heart rates into the 40s. 4. 2D echo will be done to look at her overall left ventricular function, cardiac structure and possible valvulopathies. 5. We will watch her overnight and if stable in the morning, discharge home. Thank you for allowing me to see Myriam Burrell. If there are any questions, please do not hesitate to call. DO YOVANY Fernandez/ALEXANDRO , 12:44 AM , 01:06 AM
--- NOTE | 2017-07-22 09:36 | PD.CARD.PN ---
Subjective Subjective Remarks No complaints overnight, no chest pain/SOB Right femoral with some ecchymosis, left femoral with track ooze Objective Medications Current Medications Medications (Trade) Dose Ordered Sig/Yaya Route Start Time Stop Time Status Last Admin (NS Flush) 2 ml UNSCH PRN IVF 07/19/17 12:15 (NS Flush) 2 ml UNSCH PRN IVF 07/19/17 12:30 Nitroglycerin/ Dextrose 250 ml @ 3 mls/hr TITRATE PRN IV 07/19/17 12:30 (Tylenol) 325 mg Q4H PRN PO 07/19/17 15:00 (Percocet 5-325 Mg) 1 tab Q4H PRN PO 07/19/17 15:00 07/19/17 23:47 (Percocet 10-325 Mg) 1 tab Q4H PRN PO 07/19/17 15:00 07/21/17 16:08 (Morphine Inj) 2 mg Q30M PRN IV PUSH 07/19/17 15:00 (Aspirin Chew) 81 mg DAILY PO 07/20/17 09:00 07/22/17 08:45 (Plavix) 75 mg DAILY PO 07/20/17 09:00 07/22/17 08:46 (Zofran Inj) 4 mg Q4H PRN IV PUSH 07/19/17 15:00 07/21/17 18:28 (Lipitor) 80 mg HS PO 07/19/17 21:00 07/21/17 21:29 (Requip) 2 mg HS PO 07/19/17 23:00 07/21/17 21:29 (Prinivil) 5 mg DAILY PO 07/21/17 09:00 07/22/17 08:46 (Pill Splitter) 1 ea UNSCH PRN OTHER 07/20/17 14:00 (Atropine Inj) 0.5 mg UNSCH PRN IV PUSH 07/21/17 10:15 Vital Signs / I&O Vital Signs Date Time Temp Pulse Resp B/P (MAP) Pulse Ox O2 Delivery O2 Flow Rate FiO2 07/22/17 08:00 85 07/22/17 07:42 97.5 97 16 124/64 (84) 95 07/22/17 07:00 81 07/22/17 06:16 85 07/22/17 05:00 83 07/22/17 04:38 98.2 85 125/65 (85) 96 07/22/17 04:00 80 07/22/17 03:00 82 07/22/17 02:00 80 07/22/17 01:00 80 07/22/17 00:21 97.8 85 124/67 (86) 96 07/22/17 00:00 80 07/21/17 23:00 76 07/21/17 22:00 82 07/21/17 21:00 80 07/21/17 20:00 70 07/21/17 19:00 97.8 70 116/63 (80) 98 07/21/17 19:00 80 07/21/17 18:00 70 07/21/17 17:15 18 07/21/17 17:00 80 07/21/17 16:00 70 07/21/17 15:00 79 07/21/17 15:00 98.3 83 18 133/70 (91) 97 07/21/17 14:00 80 07/21/17 13:00 83 07/21/17 12:00 81 07/21/17 11:00 72 07/21/17 11:00 97.8 72 20 136/87 (103) 96 07/21/17 10:22 75 I/O 07/21/17 07/21/17 07/21/17 07/22/17 07/22/17 07/22/17 07:00 15:00 23:00 07:00 15:00 23:00 Intake Total 480 ml 240 ml 240 ml Output Total 550 ml 600 ml 300 ml Balance -70 ml -360 ml -60 ml Intake Oral 480 ml 240 ml 240 ml Output Urine Total 550 ml 400 ml 300 ml Emesis 200 ml Physical Exam GENERAL: NAD, AAOx3 SKIN: Warm and dry. HEAD: Atraumatic. Normocephalic. EYES: Pupils equal and round. No scleral icterus. No injection or drainage. ENT: No nasal bleeding or discharge. Mucous membranes pink and moist. NECK: Trachea midline. No JVD. CARDIOVASCULAR: Regular rate and rhythm. RESPIRATORY: No accessory muscle use. Clear to auscultation. Breath sounds equal bilaterally. GASTROINTESTINAL: Abdomen soft, non-tender, nondistended. Hepatic and splenic margins not palpable. MUSCULOSKELETAL: Extremities without clubbing, cyanosis, or edema. No obvious deformities. Right femoral mild ecchymosis. Left femoral no hematoma/bruit NEUROLOGICAL: Awake and alert. No obvious cranial nerve deficits. Motor grossly within normal limits. Five out of 5 muscle strength in the arms and legs. Normal speech. PSYCHIATRIC: Appropriate mood and affect; insight and judgment normal. Laboratory Laboratory Tests Test 07/22/17 03:33 White Blood Count 7.0 TH/MM3 Red Blood Count 3.30 MIL/MM3 Hemoglobin 9.8 GM/DL Hematocrit 29.1 % Mean Corpuscular Volume 88.5 FL Mean Corpuscular Hemoglobin 29.8 PG Mean Corpuscular Hemoglobin Concent 33.7 % Red Cell Distribution Width 13.2 % Platelet Count 228 TH/MM3 Mean Platelet Volume 7.6 FL Neutrophils (%) (Auto) 52.7 % Lymphocytes (%) (Auto) 28.8 % Monocytes (%) (Auto) 9.3 % Eosinophils (%) (Auto) 8.4 % Basophils (%) (Auto) 0.8 % Neutrophils # (Auto) 3.7 TH/MM3 Lymphocytes # (Auto) 2.0 TH/MM3 Monocytes # (Auto) 0.7 TH/MM3 Eosinophils # (Auto) 0.6 TH/MM3 Basophils # (Auto) 0.1 TH/MM3 CBC Comment DIFF FINAL Differential Comment Blood Urea Nitrogen 14 MG/DL Creatinine 0.56 MG/DL Random Glucose 86 MG/DL Total Protein 6.2 GM/DL Albumin 3.2 GM/DL Calcium Level 8.3 MG/DL Alkaline Phosphatase 51 U/L Aspartate Amino Transf (AST/SGOT) 126 U/L Alanine Aminotransferase (ALT/SGPT) 62 U/L Total Bilirubin 0.5 MG/DL Sodium Level 141 MEQ/L Potassium Level 3.4 MEQ/L Chloride Level 108 MEQ/L Carbon Dioxide Level 25.4 MEQ/L Anion Gap 8 MEQ/L Estimat Glomerular Filtration Rate 109 ML/MIN Assessment and Plan Problem List: (1) CAD (coronary artery disease) ICD Codes: I25.10 - Atherosclerotic heart disease of [place] coronary artery without angina pectoris (2) STEMI (ST elevation myocardial infarction) ICD Codes: I21.3 - ST elevation (STEMI) myocardial infarction of unspecified site Status: Acute (3) Hypertension ICD Codes: I10 - Essential (primary) hypertension Assessment and Plan 1) Acute inferior STEMI s/p DESx2 to RCA PCI of LAD with LOUANN ASA/Plavix/Statin/OLVIN-I No Beta Zak due to heart rates in the 40s overnight 2) EF 55-60% 3) Drop in Hgb most likely procedural Plan to check CT Abd/Pel to make sure no retroperitoneal bleed Brad Bhatt DO Jul 22, 2017 09:36
[2017-07-22] MEDS ORDERED: IOHEXOL 350 MG/ML 10 ML VIAL (for RAD DIAG) IVCONTRAST ONE (10:52)
--- NOTE | 2017-07-22 11:19 | RADRPT ---
EXAM DATE/TIME: 07/22/2017 10:49 [facility] COMPARISON: No previous studies available for comparison. INDICATIONS : Drop in hemoglobin after cardiac cath. IV CONTRAST: 85 cc Omnipaque 350 (iohexol) IV ORAL CONTRAST: No oral contrast ingested. RADIATION DOSE: 5.44 CTDIvol (mGy) MEDICAL HISTORY : Hypertension. SURGICAL HISTORY : Cardiac cath. ENCOUNTER: Initial ACUITY: 1 day PAIN SCALE: 0/10 LOCATION: Abdomen. TECHNIQUE: Volumetric scanning of the abdomen and pelvis was performed. Using automated exposure control and adjustment of the mA and/or kV according to patient size, radiation dose was kept as low as reasonably achievable to obtain optimal diagnostic quality images. DICOM format image data is av ailable electronically for review and comparison. FINDINGS: LOWER LUNGS: Minimal posterior pleural thickening is noted within the lung bases. LIVER: There is evidence of extrahepatic biliary ductal dilatation with the common bile duct tonia uring 13 mm in caliber. Apparent sludge is noted within the distal common bile duct as well as within the gallbladder lumen. Pericholecystic fluid is also noted. Correlation with alkaline phosphatase an d bilirubin levels is suggested to rule out biliary obstruction. There is no focal hepatic mass. SPLEEN: Normal size without lesion. PANCREAS: Within normal limits. KIDNEYS: Normal in size and shape. There is no solid mass, stone or hydronephrosis. A tiny 4 mm cyst within the upper pole of the left kidney. ADRENAL GLANDS: Within normal limits. VASCULAR: There is no aortic aneurysm. BOWEL/MESENTERY: The stomach, small bowel, and colon demonstrate no acute abnormality. There is no free intraperitoneal air or fluid. ABDOMINAL WALL: Within normal limits. RETROPERITONEUM: There is no lymphadenopathy. BLADDER: No wall thickening or mass. REPRODUCTIVE: Within normal limits. INGUINAL: There is no lymphadenopathy or hernia. MUSCULOSKELETAL: Within normal limits for patient age. CONCLUSION: 1. Extrahepatic biliary ductal dilatation with the common bile duct measuring 13 mm in caliber. Appar ent sludge is noted within the distal common bile duct as well as within the gallbladder lumen. Peric holecystic fluid is also noted. Correlation with alkaline phosphatase and bilirubin levels is suggest ed to rule out biliary obstruction. 2. Mild prominence of the pancreatic duct without definite focal mass noted. 3. Tiny 4 mm upper pole left renal cyst. Edson Hayes MD on July 22, 2017 at 11:10 Board Certified Radiologist. This report was verified electronically.
--- NOTE | 2017-07-22 12:27 | HHI.DS ---
Discharge Summary Admission Date Jul 19, 2017 at 12:18 Discharge Date: Jul 22, 2017 Admitting Diagnosis STEMI alert (1) Atypical chest pain ICD Code: R07.89 - Other chest pain Diagnosis: Principal (2) Hypertension ICD Code: I10 - Essential (primary) hypertension Diagnosis: Principal (3) CAD (coronary artery disease) ICD Code: I25.10 - Atherosclerotic heart disease of [place] coronary artery without angina pectoris Diagnosis: Principal (4) STEMI (ST elevation myocardial infarction) ICD Code: I21.3 - ST elevation (STEMI) myocardial infarction of unspecified site Diagnosis: Principal Status: Acute Procedures Right groin cardiac catheter with RCA stent 2 Left groin cardiac catheter with LAD stent 1 Brief History - From Admission 66-year-old female admitted secondary to chest pain with STEMI CBC/BMP: 07/22/17 0333 07/22/17 0333 Significant Findings Laboratory Tests Test 07/20/17 04:00 07/21/17 03:39 07/22/17 03:33 Red Blood Count 3.73 MIL/MM3 (4.00-5.30) 3.80 MIL/MM3 (4.00-5.30) 3.30 MIL/MM3 (4.00-5.30) Hemoglobin 11.4 GM/DL (11.6-15.3) 9.8 GM/DL (11.6-15.3) Hematocrit 32.9 % (35.0-46.0) 33.8 % (35.0-46.0) 29.1 % (35.0-46.0) Monocytes (%) (Auto) 10.6 % (0.0-8.0) 9.9 % (0.0-8.0) 9.3 % (0.0-8.0) Monocytes # (Auto) 1.1 TH/MM3 (0-0.9) Random Glucose 122 MG/DL (74-106) 127 MG/DL (74-106) Potassium Level 3.2 MEQ/L (3.5-5.1) 3.4 MEQ/L (3.5-5.1) Estimat Glomerular Filtration Rate 70 ML/MIN (>89) 72 ML/MIN (>89) Triglycerides Level 157 MG/DL (42-150) Cholesterol Level 101 MG/DL (120-200) HDL Cholesterol 37.9 MG/DL (40.0-60.0) Total Protein 6.3 GM/DL (6.4-8.2) 6.2 GM/DL (6.4-8.2) Albumin 3.2 GM/DL (3.4-5.0) 3.2 GM/DL (3.4-5.0) Aspartate Amino Transf (AST/SGOT) 229 U/L (15-37) 126 U/L (15-37) Alanine Aminotransferase (ALT/SGPT) 75 U/L (10-53) 62 U/L (10-53) Eosinophils (%) (Auto) 8.4 % (0.0-4.0) Eosinophils # (Auto) 0.6 TH/MM3 (0-0.4) Calcium Level 8.3 MG/DL (8.5-10.1) Chloride Level 108 MEQ/L (98-107) Hospital Course Mrs. Burrell is a 66-year-old female. She has a history of coronary artery disease. She was admitted secondary to STEMI alert which showed positivity. She was taken for cardiac. Multivessel disease is found. On her first cardiac catheter she had 2 stents placed in the RCA vessel. This was subsequently followed up by a repeat catheterization for stenting of the LAD artery. She had some right groin bleeding after the first procedure. She may have lost blood from this. She has a slight downward trend in her hemoglobin. CT of the abdomen obtained to rule out retroperitoneal bleed. No evidence of retroperitoneal bleed seen. Patient is medically stable for discharge home today. Pt Condition on Discharge: Stable Discharge Disposition: Discharge Home Discharge Time: <= 30 minutes Discharge Instructions DIET: Follow Instructions for: Heart Healthy Diet Activities you can perform: Regular-No Restrictions Follow up Referrals: Cardiology - 2 Weeks with Say Rowe MD PCP Follow-up - 2 Weeks New Medications: Atorvastatin (Atorvastatin) 80 Mg Tab 80 MG PO HS for Cholesterol Management, #30 TAB Clopidogrel (Plavix) 75 Mg Tab 75 MG PO DAILY for Blood Clot Prevention, #30 TAB Continued Medications: Aspirin (Aspirin Low Dose) 81 Mg Chew 81 MG CHEW DAILY, TAB [address] (Diclofenac Sodium DR) 75 Mg Tabdr 75 MG PO BID, #60 TAB 0 Refills Ropinirole (Ropinirole) 2 Mg Tab 2 MG PO HS, #30 TAB 0 Refills Zolpidem (Zolpidem) 10 Mg Tab 12.5 MG PO HS PRN for INSOMNIA, TAB 0 Refills Discontinued Medications: Amlodipine (Amlodipine) 5 Mg Tab 5 MG PO DAILY for Blood Pressure Management, #30 TAB 1 Refill Lisinopril (Lisinopril) 10 Mg Tab 10 MG PO DAILY, #30 TAB 1 Refill Pravastatin (Pravastatin) 20 Mg Tab 20 MG PO DAILY for Cholesterol Management, #30 TAB 0 Refills Triamterene-Hydrochlorothiazide (Triamterene-Hydrochlorothiazide) 37.5-25 Mg Cap 1 CAP DAILY, #30 CAP 0 Refills Nigel Radford MD Jul 22, 2017 12:27
== END 2017-07-22 12:25 | disposition home or self-care (01) | DRG 247 ==
LOC: NEPC 12:07 → NEDA 12:18 → HCPC 15:04
PROVIDERS: ADMIT Hospitalist; ATTEND Hospitalist
PROC: 027035Z Dilation of Coronary Artery, One Artery with Two Drug-eluting Intraluminal Devices, Percutaneous Approach (ICD-10-PCS; principal; 2017-07-19)
PROC: 4A023N7 Measurement of Cardiac Sampling and Pressure, Left Heart, Percutaneous Approach (ICD-10-PCS; 2017-07-19)
PROC: 02C03ZZ Extirpation of Matter from Coronary Artery, One Artery, Percutaneous Approach (ICD-10-PCS; 2017-07-19)
PROC: B2111ZZ Fluoroscopy of Multiple Coronary Arteries using Low Osmolar Contrast (ICD-10-PCS; 2017-07-19)
PROC: 027034Z Dilation of Coronary Artery, One Artery with Drug-eluting Intraluminal Device, Percutaneous Approach (ICD-10-PCS; 2017-07-21)
PROC: 4A023N7 Measurement of Cardiac Sampling and Pressure, Left Heart, Percutaneous Approach (ICD-10-PCS; 2017-07-21)
DX: I21.19 ST elevation (STEMI) myocardial infarction involving other coronary artery of inferior wall (principal); N17.9 Acute kidney failure, unspecified; I10 Essential (primary) hypertension; R00.0 Tachycardia, unspecified; E78.5 Hyperlipidemia, unspecified; G25.81 Restless legs syndrome; G47.00 Insomnia, unspecified; R00.1 Bradycardia, unspecified; I25.10 Atherosclerotic heart disease of native coronary artery without angina pectoris; K21.9 Gastro-esophageal reflux disease without esophagitis; Z87.891 Personal history of nicotine dependence
CPT/HCPCS: 33210; 71045; 74177; 80048; 80053; 80061; 82310; 82550; 82552; 83735; 83880; 84484; 85002; 85025; 85610; 85730; 92928; 92973; 93005; 93306; 93454; 93458; 99152; 99153; 99285; C1725; C1757; C1760; C1769; C1874; C1887; C1893; J0153; J1644; J2250; J2370; J2405; J3010; J3246; J7030; Q9967

== ENCOUNTER 2017-10-22 17:04 | Observation (INO) ==
--- NOTE | 2017-10-22 18:54 | XR ---
EXAM DATE: 10/22/2017 6:49 PM EDT AGE/SEX: 67 years / Female INDICATIONS: Chest pain. Chest pressure. CLINICAL DATA: This is the patient's initial encounter. Patient reports that signs and symptoms have been present for 1 day and indicates a pain score of 3/10. MEDICAL/SURGICAL HISTORY: Hypertension. Heart attack July 2017 None. COMPARISON: [facility] – [place], CHEST SINGLE AP, 07/19/2017. . FINDINGS: The heart size is normal. There is minimal linear density at the left lateral base. The lungs are oth erwise clear. No effusion is seen. The bony structures are intact. CONCLUSION: Suspected minimal linear atelectasis at the left base. Electronically signed by: Rasheed Vogt MD 10/22/2017 6:53 PM EDT
[2017-10-22 18:59] LABS: Baso # (Auto) 0.1 th/mm3 (0.0-0.2); Baso % (Auto) 1.1 % (0.0-2.0); Eos # (Auto) 0.5 th/mm3 (0.0-0.4); Eos % (Auto) 7.6 % (0.0-4.0); Hematocrit 42.8 % (35.0-46.0); Hemoglobin 14.5 gm/dL (11.6-15.3); Lymph # (Auto) 1.7 th/mm3 (1.0-4.8); Lymph % (Auto) 24.2 % (9.0-44.0); Mean Corpuscular Hemoglobin 29.9 pg (27.0-34.0); Mean Corpuscular Volume 88.1 fL (80.0-100.0); Mean Platelet Volume 7.4 fL (7.0-11.0); Mono # (Auto) 0.6 th/mm3 (0.0-0.9); Mono % (Auto) 8.7 % (0.0-8.0); Neut % (Auto) 58.4 % (16.0-70.0); Platelet Count 275 th/mm3 (150-450); Red Blood Count 4.86 mil/mm3 (4.00-5.30); Red Cell Distribution Width 14.5 % (11.6-17.2); White Blood Count 6.8 th/mm3 (4.0-11.0)
--- NOTE | 2017-10-22 19:13 | ED ---
HPI General Chief Complaint: Chest Pain Stated Complaint: pressure on her chest/DR SENT Time Seen by Provider: 10/22/17 18:24 Source: patient, family, RN notes reviewed and old records reviewed Mode of arrival: ambulatory History of Present Illness HPI narrative: 67yF presenting with chest pain. The patient has a history of STEMI in July 2017 s/p RCA stent x 2, LAD stent x 1; she states that today she began to have gradual onset substernal "pressure"-like pain which radiates to both shoulders, constant, not made better or worse by anything, no associated symptoms, moderate intensity. She went to her PMD's office, had an EKG performed , and was sent to the ED for further evaluation. Family history non-contributory. Complete Quality Measures for STEMI Alert Patients Related Data Home Medications Medication Instructions Recorded Confirmed aspirin [Aspir-81] 81 mg PO DAILY 10/22/17 10/22/17 atorvastatin 80 mg PO HS 10/22/17 10/22/17 clopidogrel [Plavix] 75 mg PO DAILY 10/22/17 10/22/17 diclofenac sodium 75 mg PO BID 10/22/17 10/22/17 lisinopril 40 mg PO DAILY 10/22/17 10/22/17 nitroglycerin 0.4 mg SUBLINGUAL Q5-15M PRN 10/22/17 10/22/17 ropinirole 2 mg PO BID 10/22/17 10/22/17 zolpidem 12.5 mg PO HS PRN 10/22/17 10/22/17 Allergies Allergy/AdvReac Type Severity Reaction Status Date / Time No Known Allergies Allergy Verified 10/22/17 18:41 Review of Systems ROS Unobtainable All other systems reviewed negative except as stated in HPI Constitutional Denies fever(s) Eyes Denies blurry vision ENT Denies nasal congestion Cardiovascular Reports chest pain Respiratory Denies cough and Denies dyspnea Gastrointestinal Denies nausea Genitourinary Denies dysuria Musculoskeletal Denies back pain Neurologic Denies confusion Psychiatric Denies confusion [facility] Medical History Medical History Hypertension (Acute) Insomnia (Acute) Hypercholesteremia (Acute) Restless leg syndrome (Acute) Treadmill stress test negative for angina pectoris (Acute) Recent heart attack (Acute) Surgical History Surgical History H/O neck surgery (Acute) Hx of tonsillectomy (Acute) Social History Social History Substance History: No History of Abuse Smoking Status: Former smoker How Often Do You Have a Drink Containing Alcohol: 2 to 3 times a week Recent Travel in [place] within the Last 8 Weeks: No Recent Out of Country Travel within the Last 8 Weeks: No Immunization History Tetanus Immunization: Unsure Hx Influenza Vaccine This Season: Yes Exam Narrative Exam Narrative: GEN: Well-nourished well-developed female, no acute distress HEENT: NCAT, PERRL, EOMI; mucosa moist and pink CARDIO: Regular rate and rhythm PULM: Clear to auscultation bilaterally ABD: Soft, non-tender, non-distended, no guarding or rebound EXT/MS: No lower extremity edema, warm and well-perfused SKIN: Non-diaphoretic NEURO: GCS 15, A&Ox3, no focal deficits PSYCH: Normal affect, cooperative with exam Course Initial Documented Vital Signs Temperature 97.2 F L 10/22/17 17:08 Pulse Rate 67 10/22/17 17:08 Respiratory Rate 20 10/22/17 17:08 Blood Pressure 233/106 H 10/22/17 17:08 Pulse Oximetry 100 10/22/17 17:08 Last Documented Vital Signs Temperature 97.2 F L 10/22/17 17:08 Pulse Rate 70 10/22/17 18:46 Respiratory Rate 16 10/22/17 18:46 Blood Pressure 183/99 H 10/22/17 18:46 Pulse Oximetry 100 10/22/17 18:46 Clinical Decision Support Wells' Criteria Questions Clinical Signs and Symptoms of DVT: No PE is primary diagnosis or equally likely: No Heart Rate greater than 100: No Immobilized at least 3 days or Surgery in previous 4 weeks: No Previous, objectively diagnosed PE or DVT: No Hemoptysis: No Malignancy with treatment within 6 months or palliative: No Wells' Criteria Score Wells' Criteria Score: 0 Medical Decision Making MDM Narrative Medical decision making narrative: Assessment: 67yF presenting with chest pain Plan: EKG and monitor Labs CXR ASA (patient already took 81 mg this morning) Reassess Addendum: Patient's initial workup negative. Cardiac cath report from July showed residual LAD disease s/p stenting; patient is at high risk for further episodes of acute coronary syndrome. Will keep in chest pain observation unit overnight for serial cardiac enzymes, cardiac monitoring, and further workup. I explained the results of all labs and imaging to the patient as well as plan to keep her overnight; she understands and agrees. Differential Diagnosis Differential Diagnosis: Differential diagnosis includes, but is not limited to: ACS, pneumonia, pleuritis, musculoskeletal pain Lab Data Lab results reviewed: Yes I reviewed the patient's lab results. Lab results narrative: Initial troponin negative, labs otherwise unremarkable. Result diagrams: 10/22/17 18:35 10/22/17 18:35 Lab Results 10/22/17 10/22/17 10/22/17 Range/Units 18:35 18:35 18:35 WBC 6.8 (4.0-11.0) th/mm3 RBC 4.86 (4.00-5.30) mil/mm3 Hgb 14.5 (11.6-15.3) gm/dL Hct 42.8 (35.0-46.0) % MCV 88.1 (80.0-100.0) fL MCH 29.9 (27.0-34.0) pg MCHC 34.0 (32.0-36.0) % RDW 14.5 (11.6-17.2) % Plt Count 275 (150-450) th/mm3 MPV 7.4 (7.0-11.0) fL Neut % (Auto) 58.4 (16.0-70.0) % Lymph % (Auto) 24.2 (9.0-44.0) % [place] % (Auto) 8.7 H (0.0-8.0) % Eos % (Auto) 7.6 H (0.0-4.0) % Baso % (Auto) 1.1 (0.0-2.0) % Neut # (Auto) 4.0 (1.8-7.7) th/mm3 Lymph # (Auto) 1.7 (1.0-4.8) th/mm3 [place] # (Auto) 0.6 (0.0-0.9) th/mm3 Eos # (Auto) 0.5 H (0.0-0.4) th/mm3 Baso # (Auto) 0.1 (0.0-0.2) th/mm3 WBC Differential . Differential Comment Auto diff final Sodium 141 (136-145) meq/L Potassium 4.1 (3.5-5.1) meq/L Chloride 107 (98-107) meq/L Carbon Dioxide 25.2 (21.0-32.0) meq/L Anion Gap 9 (5-15) meq/L BUN 9 (7-18) mg/dL Creatinine 0.77 (0.50-1.00) mg/dL Estimated GFR 75 L (>89) mL/min Random Glucose 124 H (74-106) mg/dL Calcium 9.6 (8.5-10.1) mg/dL Magnesium 2.1 (1.5-2.5) mg/dL Total Creatine Kinase 113 (26-192) U/L CK-MB (CK-2) 1.3 (0.5-3.6) ng/mL Troponin I Less than 0.02 L Less than 0.02 L (0.02-0.05) ng/mL Imaging Data Attestation: I personally reviewed and interpreted this imaging study as follows : My impression: CXR- Airway midline. No focal infiltrates. No pneumothorax. No pleural effusion. Cardiac and mediastinal silhouettes within normal limits. Radiologist's impression: ITS Impressions Chest X-Ray 10/22/17 18:31 CONCLUSION: Suspected minimal linear atelectasis at the left base. ECG Data Interpretation: Rate: 67 BPM Rhythm: Sinus Gypsy: Normal Intervals: Normal intervals, no blocks, QTc 425 ms Q waves: III, aVF, V2 T waves: Inverted in III, aVF ST segments: No elevations or depressions Impression: Non-specific EKG, inferior Q waves/ T wave inversions which are unchanged from EKG on 07/20/2017. Discharge Plan Discharge Disposition Patient Disposition: 30 Still Patient Discharge Condition Condition: Stable Discharge Details Diagnosis: Chest pain Physicians Team ED Provider: Brenna Munroe Primary Care Provider: Brandon Ludwig Rxs /Orders / Referrals /Forms Prescriptions: No Action atorvastatin 80 mg Tablet 80 mg PO HS RF: 0 clopidogrel [Plavix] 75 mg Tablet 75 mg PO DAILY RF: 0 aspirin [Aspir-81] 81 mg Tablet,Delayed Release (Dr/Ec) 81 mg PO DAILY RF: 0 ropinirole 2 mg Tablet 2 mg PO BID RF: 0 nitroglycerin 0.4 mg Tablet, Sublingual 0.4 mg SUBLINGUAL Q5-15M PRN (Reason: Chest Pain) RF: 0 diclofenac sodium 75 mg Tablet,Delayed Release (Dr/Ec) 75 mg PO BID RF: 0 lisinopril 40 mg Tablet 40 mg PO DAILY RF: 0 zolpidem 12.5 mg Tablet,Ext Release Multiphase 12.5 mg PO HS PRN (Reason: Insomnia) RF: 0 Discharge Instructions Patient Printed Instructions: Chest Pain (ED) Discharge Interventions Interventions: Vital Signs Last Done: 10/22/17 18:36 Status ED Status: With Doctor
[2017-10-22 19:18] LABS: Anion Gap 9 meq/L (5-15); Blood Urea Nitrogen 9 mg/dL (7-18); Calcium 9.6 mg/dL (8.5-10.1); Carbon Dioxide 25.2 meq/L (21.0-32.0); Chloride 107 meq/L (98-107); Glomerular Filtration Rate 75 mL/min (>89); Glucose,Random 124 mg/dL (74-106); Magnesium 2.1 mg/dL (1.5-2.5); Potassium 4.1 meq/L (3.5-5.1); Sodium 141 meq/L (136-145)
[2017-10-22 19:22] LABS: Creatine Kinase 113 U/L (26-192)
[2017-10-22 19:34] LABS: Creatine Kinase MB 1.3 ng/mL (0.5-3.6)
[2017-10-22] MEDS ORDERED: Acetaminophen 500 MG Tablet PO PRN (19:59)
[2017-10-22 21:48] LABS: Creatine Kinase 103 U/L (26-192)
[2017-10-23] MEDS ORDERED: Lisinopril 20 MG Tablet PO SCH (09:00)
[2017-10-23] MEDS ORDERED: Aspirin 325 MG Tablet PO SCH (09:00)
--- NOTE | 2017-10-23 09:28 | P.HPCA ---
History of Present Illness Primary Care Physician: Brandon Ludwig MD Chief Complaint: Chest pain and hypertension History of Present Illness: This is a 67-year-old female with history of being a STEMI alert July 2017 and having 2 stents of the RCA and one stent of LAD the presents to ED with complaint of chest discomfort that feels similar to the discomforts that she had leading to stenting. She states that she felt a central chest heaviness yesterday lasted 3-4 hours. She felt lightheaded. She called her primary care physician who advised her to come to the ED. Found nothing to worsen or improve the symptoms. Found her blood pressure to be high. Voices compliance with her blood pressure medication which is lisinopril. Also states she has been taking Plavix as directed. She has followed up with her paving contractor one time since the admission when she was a STEMI alert and is scheduled to have a follow-up in February. Currently denies chest discomfort. Denies recent illness. Denies fevers or chills. Denies recent travel. Patient was a STEMI alert with cardiac catheterization July 1999 leading to stenting 2 of the RCA and a second cardiac catheterization with stenting of LAD 1. There is family history of CAD. Patient quit smoking a while ago. - Diagnosis (1) Chest pain (2) History of coronary artery disease (3) Hx of heart artery stent (4) Hypertension (5) Hypercholesteremia Inpatient Certification: I certify that the inpatient services were ordered in accordance with Medicare regulations governing the order. This includes certification that hospital inpatient services are reasonable and necessary and in the case of services not specified as inpatient-only under 42 CFR 419.22(n), that they are appropriately provided as inpatient services in accordance to with the 2-midnight benchmark under 43 CFR 412.3(e) Review of Systems General: Patient denies fevers, chills, and recent travel. HEENT: Patient denies headache, sore throat, difficulty swallowing. Cardiovascular: Has the chest discomfort as mentioned above. Denies sensation of heart beating rapidly or irregularly. No syncope. Denies diaphoresis. Respiratory: Denies shortness of breath or inspirational chest discomfort. Denies coughing wheezing or hemoptysis. GI: Patient denies nausea, vomiting, diarrhea, abdominal pain, bloody stools. Musculoskeletal: Patient denies joint pain or edema. Denies calf pain or edema. Neurovascular: Patient denies numbness, tingling, weakness in extremities. Denies headache. Endocrine: Denies polyuria and polydipsia. Hematologic: Denies easy bruising. Skin: Denies rash or itching. PMFSH - History History Provided By: Patient - Medical History Medical History: Medical History (Last Reviewed 10/22/17 @ 19:16 by Brenna Munroe DO) Hypertension (Acute) Insomnia (Acute) Hypercholesteremia (Acute) Restless leg syndrome (Acute) Treadmill stress test negative for angina pectoris (Acute) Recent heart attack (Acute) - Surgical History Surgical History: Surgical History (Last Reviewed 10/22/17 @ 19:16 by Brenna Munroe DO) H/O neck surgery (Acute) Hx of tonsillectomy (Acute) - Tobacco History Second Hand Smoke Exposure: Yes Tobacco Use In Past 30 Days: No Smoking Status: Former smoker Tobacco Type: Cigarettes - Alcohol History How Often Do You Have a Drink Containing Alcohol: 2 to 4 times a month - Substance Use History Substance History: No History of Abuse - Travel History Recent Travel in the [facility] Within the Last 8 Weeks: No Recent Travel Out of the Country Within the Last 8 Weeks: No - Immunization History Tetanus Immunization: Unsure Hx Influenza Vaccine This Season: Yes Medications and Allergies Active Medications: Active Medications Acetaminophen (Tylenol) 500 mg PO Q4H PRN PRN Reason: HEADACHE Aspirin (Ecotrin) 81 mg PO DAILY [facility] Atorvastatin Calcium (Lipitor) 80 mg PO HS [facility] Clopidogrel Bisulfate (Plavix) 75 mg PO DAILY [facility] Lisinopril (Prinivil) 40 mg PO DAILY [facility] Metoprolol Tartrate (Lopressor) 50 mg PO BID [facility] Nitroglycerin (Nitrostat Sl) 0.4 mg SL Q5M PRN PRN Reason: CHEST PAIN Last Admin: 10/22/17 20:50 Dose: 0.4 mg Ropinirole HCl (Requip) 2 mg PO BID [facility] Sodium Chloride (Ns Flush) 2 ml IV.FLUSH PRN PRN PRN Reason: FLUSH AFTER USING IV ACCESS Sodium Chloride (Ns Flush) 2 ml IV.FLUSH BID [facility] Last Admin: 10/23/17 03:16 Dose: 2 ml Zolpidem Tartrate (Ambien) 10 mg PO HS PRN PRN Reason: INSOMNIA Allergies Allergy/AdvReac Type Severity Reaction Status Date / Time No Known Allergies Allergy Verified 10/22/17 18:41 Home Medications Medication Instructions Recorded Confirmed Type aspirin [Aspir-81] 81 mg PO DAILY 10/22/17 10/22/17 History atorvastatin 80 mg PO HS 10/22/17 10/22/17 History clopidogrel [Plavix] 75 mg PO DAILY 10/22/17 10/22/17 History diclofenac sodium 75 mg PO BID 10/22/17 10/22/17 History lisinopril 40 mg PO DAILY 10/22/17 10/22/17 History nitroglycerin 0.4 mg SUBLINGUAL Q5-15M PRN 10/22/17 10/22/17 History ropinirole 2 mg PO BID 10/22/17 10/22/17 History zolpidem 12.5 mg PO HS PRN 10/22/17 10/22/17 History Exam Vital signs: Vital Signs 10/22/17 17:08 10/22/17 18:36 10/22/17 18:46 Temperature 97.2 F L Pulse Rate 67 68 66 Respiratory Rate 20 16 16 Blood Pressure 233/106 H 183/99 H 183/99 H Pulse Oximetry 100 99 100 10/22/17 20:00 10/22/17 21:03 10/22/17 22:07 Temperature Pulse Rate 65 66 Respiratory Rate 16 16 Blood Pressure 153/78 H 166/79 H Pulse Oximetry 99 98 10/22/17 23:00 10/22/17 23:02 10/23/17 00:15 Temperature 97.9 F Pulse Rate 63 Respiratory Rate 20 20 18 Blood Pressure 190/85 H Pulse Oximetry 98 10/23/17 00:30 10/23/17 04:14 10/23/17 08:00 Temperature 97 F L 98.3 F Pulse Rate 60 65 63 Respiratory Rate 18 Blood Pressure 178/79 H 176/86 H Pulse Oximetry 96 98 Intake & Output 10/22/17 10/23/17 10/23/17 18:59 06:59 18:59 Weight 56.699 kg Other: # Voids 2 Narrative: GENERAL: This is a well-nourished, well-developed patient, in no apparent distress. Patient speaks in clear complete sentences. Patient is pleasant. HEENT: Head is atraumatic and normocephalic. Neck is supple without lymphadenopathy and trachea is midline. No JVD or carotid bruits. CARDIOVASCULAR: Regular rate and rhythm without murmurs, gallops, or rubs. RESPIRATORY: Clear to auscultation. Breath sounds equal bilaterally. No wheezes , rales, or rhonchi. Chest wall is nontender. No use of accessory muscles. GASTROINTESTINAL: Abdomen is nontender, nondistended. Abdomen soft. No obvious pulsatile mass or bruit. No CVA tenderness. Strong femoral pulses bilaterally. Normal bowel sounds in all quadrants. MUSCULOSKELETAL: Patient is moving upper and lower extremities freely. No calf tenderness or edema, no Homans sign. Strong pulses in upper and lower extremities. NEUROLOGICAL: Patient is alert and oriented. Cranial nerves 2-12 are grossly intact. No focal deficits and speech is clear. SKIN: No rash and turgor is normal. Results 10/22/17 18:35 10/22/17 18:35 Cardiac Enzymes 10/22/17 10/22/17 10/22/17 Range/Units 18:35 18:35 20:55 CK-MB (CK-2) 1.3 (0.5-3.6) ng/mL Troponin I Less than 0.02 L Less than 0.02 L Less than 0.02 L (0.02-0.05) ng/mL CBC 10/22/17 Range/Units 18:35 WBC 6.8 (4.0-11.0) th/mm3 RBC 4.86 (4.00-5.30) mil/mm3 Hgb 14.5 (11.6-15.3) gm/dL Hct 42.8 (35.0-46.0) % Plt Count 275 (150-450) th/mm3 Neut # (Auto) 4.0 (1.8-7.7) th/mm3 Lymph # (Auto) 1.7 (1.0-4.8) th/mm3 Martin # (Auto) 0.6 (0.0-0.9) th/mm3 Eos # (Auto) 0.5 H (0.0-0.4) th/mm3 Baso # (Auto) 0.1 (0.0-0.2) th/mm3 Comprehensive Metabolic Panel 10/22/17 Range/Units 18:35 Sodium 141 (136-145) meq/L Potassium 4.1 (3.5-5.1) meq/L Chloride 107 (98-107) meq/L Carbon Dioxide 25.2 (21.0-32.0) meq/L BUN 9 (7-18) mg/dL Creatinine 0.77 (0.50-1.00) mg/dL Calcium 9.6 (8.5-10.1) mg/dL Intake and Output 10/22/17 10/23/17 10/23/17 22:59 06:59 14:59 Other: # Voids 2 Weight 56.699 kg EKG interpretations - EKG EKG shows: sinus rhythm (EKGs are sinus rhythm with nonspecific ST changes. Elevations that were present on prior visit are not on current EKG.) Caprini VTE Risk Assessment Caprini VTE Risk Assessment: Moderate/High Risk (score >= 2) Caprini Risk Assessment Model: Point Value = 1 Point Value = 2 Point Value = 3 Point Value = 5 Age 41-60 Minor surgery BMI > 25 kg/m2 Swollen legs Varicose veins or History of unexplained or recurrent spontaneous Oral contraceptives or hormone replacement Sepsis (< 1 month) Serious lung disease, including pneumonia (< 1 month) Abnormal pulmonary function Acute myocardial infarction Congestive heart failure (< 1 month) History of inflammatory bowel disease Medical patient at bed rest Age 61-74 Arthroscopic surgery Major open surgery (> 45 min) Laparoscopic surgery (> 45 min) Malignancy Confined to bed (> 72 hours) Immobilizing plaster cast Central venous access Age >= 75 History of VTE Family history of VTE Factor V Leiden Prothrombin [id number] Lupus anticoagulant Anticardiolipin antibodies Elevated serum homocysteine Heparin-induced thrombocytopenia Other congenital or acquired thrombophilia Stroke (< 1 month) Elective arthroplasty Hip, pelvis, or leg fracture Acute spinal cord injury (< 1 month) Prophylaxis Regimen: Total Risk Factor Score Risk Level Prophylaxis Regimen 0-1 Low Early ambulation 2 Moderate Order ONE of the following: *Sequential Compression Device (SCD) *Heparin 5000 units SQ BID 3-4 Higher Order ONE of the following medications: *Heparin 5000 units SQ TID *Enoxaparin/Lovenox 40 mg SQ daily (WT < 150 kg, CrCl > 30 mL/min) *Enoxaparin/Lovenox 30 mg SQ daily (WT < 150 kg, CrCl > 10-29 mL/min) *Enoxaparin/Lovenox 30 mg SQ BID (WT < 150 kg, CrCl > 30 mL/min) AND/OR *Sequential Compression Device (SCD) 5 or more Highest Order ONE of the following medications: *Heparin 5000 units SQ TID (Preferred with Epidurals) *Enoxaparin/Lovenox 40 mg SQ daily (WT < 150 kg, CrCl > 30 mL/min) *Enoxaparin/Lovenox 30 mg SQ daily (WT < 150 kg, CrCl > 10-29 mL/min) *Enoxaparin/Lovenox 30 mg SQ BID (WT < 150 kg, CrCl > 30 mL/min) AND *Sequential Compression Device (SCD) Assessment and Plan - Assessment (1) Chest pain Code(s): R07.9 - Chest pain, unspecified Status: Acute (2) History of coronary artery disease Code(s): Z86.79 - Personal history of other diseases of the circulatory system Status: Acute (3) Hx of heart artery stent Code(s): Z95.5 - Presence of coronary angioplasty implant and graft Status: Acute (4) Hypertension Code(s): I10 - Essential (primary) hypertension Status: Acute (5) Hypercholesteremia Code(s): E78.00 - Pure hypercholesterolemia, unspecified Status: Acute - Plan * Chest pain: Patient has had serial cardiac enzymes and EKGs for ruling out purposes. She has been seen by Dr. Karl Manuel of cardiology in the chest pain center. He spoke with her paving contractor Dr. Bhatt. Patient will undergo a Lexiscan. She will be discharged home if her stress test is nonischemic with instructions to follow-up with her PCP, her paving contractor, and return to ED for interval issues. * Hypertension: Continue lisinopril add metoprolol. Continue to monitor. She should keep a journal to bring her physician at next follow-up. * Hyperlipidemia: Continue medication. * CAD with history of stent: This will be reassessed with stress testing. Patient will need follow-up with her paving contractor. Patient is stable at this time. She is agreeable to this plan. H&P: Quality - VTE Deep Vein Thrombosis/Pulmonary Embolism Present on Admission: No
[2017-10-23] MEDS ORDERED: Metoprolol Tartrate 50 MG Tablet PO SCH (09:30)
[2017-10-23] MEDS ORDERED: Regadenoson Inj 0.4 MG/5 ML Syringe IV.PUSH ONE (09:40)
--- NOTE | 2017-10-23 11:08 | NM ---
EXAM DATE: 10/23/2017 10:56 AM EDT AGE/SEX: 67 years / Female INDICATIONS:Angina. Myocardial infarction Mid chest pain for one day. CLINICAL DATA: This is the patient's initial encounter. Patient reports that signs and symptoms have been present for 1 day and indicates a pain score of 3/10. MEDICAL/SURGICAL HISTORY: Hypertension. Coronary artery stent. Tonsillectomy. COMPARISON: No prior exams available for comparison. No external comparison. DOSE: 8.1 mCi Tc 99m Myoview at rest 25.6 mCi [id number] at stress 0.4 mg Lexiscan STRESS SYMPTOMS: Dyspnea. EJECTION FRACTION: 59 % TECHNIQUE: The patient underwent pharmacologic stress with infusion of prescribed dose. Continuous ECG tracing was monitored during stress. Gated SPECT imaging was performed after stress and conventi onal SPECT imaging was performed at rest. The examination was performed on a SPECT/CT scanner, both attenuation and non-corrected datasets were reviewed. FINDINGS: Distribution: The maximum perfused segment at stress is in the septal wall. Perfusion Study: There is a fixed defect at the inferior wall and inferior septum. There is an area of mild decreased activity on the stress images at the inferior aspect of the lateral wall at the mi d and basilar portion of the left ventricle. The differences in the order of 10-20% decreased activit y. Gated Study: There are intact wall motion and wall thickening without hypokinetic or dyskinetic segm ents. The ejection fraction is calculated at 59%. RISK CATEGORY: Intermediate (1-3 % Annual Mortality Rate) CONCLUSION: 1. Large fixed defect involving the inferior wall. 2. Borderline ischemia at the inferior aspect of the lateral wall with decreased activity on the str ess images in the order of 10-20%. Electronically signed by: Rahseed Vogt MD 10/23/2017 11:07 AM EDT
[2017-10-23] MEDS ORDERED: amLODIPine 5 MG Tablet PO SCH (13:15)
--- NOTE | 2017-10-23 13:15 | ECG ---
Date Performed: 10/22/2017 Time Performed: 20:54:10 PTAGE: 67 years EKG: Sinus rhythm INFERIOR MYOCARDIAL INFARCTION ABNORMAL ECG PREVIOUS TRACING : 07/20/2017 04.56 Since previous tracing, no significant change noted DOCTOR: Karl Manuel Interpretating Date/Time 10/28/2017 16:48:14
--- NOTE | 2017-10-23 13:19 | ECG ---
Date Performed: 10/22/2017 Time Performed: 17:23:54 PTAGE: 67 years EKG: Sinus rhythm INFERIOR MS ABNORMAL ECG NO PREVIOUS TRACING DOCTOR: Karl Manuel Interpretating Date/Time 10/23/2017 13:15:47
--- NOTE | 2017-10-28 16:45 | ECG ---
Date Performed: 10/23/2017 Time Performed: 00:27:58 PTAGE: 67 years EKG: Sinus rhythm WITH FIRST DEGREE AV BLOCK SEPTAL MYOCARDIAL INFARCTION MODERATE T-WAVE ABNORMALITY, CONSIDER INFERI OR ISCHEMIA ABNORMAL ECG PREVIOUS TRACING : 10/22/2017 20.54 Since previous tracing, no significant change noted DOCTOR: Karl Manuel Interpretating Date/Time 10/28/2017 16:44:12
--- NOTE | 2018-01-13 13:14 | TR ---
Date Performed: 10/23/2017 Time Performed: 09:44:49 DOCTOR: Karl Manuel DRUG LIST: CLINICAL HISTORY: REASON FOR TEST: REASON FOR ENDING: OBSERVATION: CONCLUSION: COMMENTS: Lexiscan stress test was performed under standard four minute protocol. Radionuclide was injected one minute prior to ending the test. No electrocardiographic abormalities were present t o suggest ischemia. Nuclear imaging and interpretation are pending.
== END 2017-10-23 16:14 | disposition home or self-care (01) ==
LOC: NEPE 17:04 → NEPFCDU 17:04 → NEDA 17:04 → NEPFCDU 22:09
PROVIDERS: ADMIT Internal Medicine Cardiovascular Disease; ATTEND Internal Medicine Cardiovascular Disease